=== PATIENT | female | born 1970 | race Native Hawaiian/Other Pacific Islander ===

== ENCOUNTER 2016-12-06 06:37 | Inpatient (IN) | payer MEDICAID ==
[~2016-12-06] VITALS: Ht 172.7 cm; Wt 147.2 kg
[2016-12-06] VITALS (11 sets, daily range): BP systolic 142–162; BP diastolic 73–96
[~2016-12-06 06:37] MED LIST: TRAM50TA2 PO
[2016-12-06 07:42] LABS: Basophils # (auto) 0 uL; Basophils % (auto) 0.5 % (0.0-2.0); DEFINITIVE VIEW TRANSMISSION; Eosinophils # (auto) 0.2 uL; Eosinophils % (auto) 1.6 % (0.0-7.0); Hematocrit 24.8 % (36.0-46.0); Hemoglobin 7.8 g/dL (12.2-16.2); Lymphocytes # (auto) 1.2 uL; Lymphocytes % (auto) 11.9 % (10.0-50.0); Mean Corpuscular Hemoglobin 20.8 pg (28.0-32.0); Mean Corpuscular Hgb Conc. 31.5 g/dL (32.0-36.0); Mean Corpuscular Volume 66.1 fL (80.0-100.0); Mean Platelet Volume 8.4 fL (7.4-10.4); Monocytes # (auto) 0.4 uL; Monocytes % (auto) 3.7 % (0.0-12.0); Neutrophils # (auto) 8.2 uL; Neutrophils % (auto) 82.3 % (37.0-80.0); Platelet Count (auto) 284 10^3/uL (140-450); Red Cell Distribution Width 19.2 % (11.6-16.0)
[2016-12-06 08:05] LABS: Albumin 2.7 g/dL (3.4-5.0); BUN/Creatinine Ratio 15.6; Bilirubin, Total 0.5 mg/dL (0.2-1.0); Calcium 7.9 mg/dL (8.5-10.1); Total Protein 6.9 g/dL (6.4-8.2)
[2016-12-06 08:09] LABS: Potassium 2.8 mmol/L (3.5-5.1)
[2016-12-06] MEDS ORDERED: POTASSIUM CHL 10% (20 MEQ/15ML) ORAL SOLN PO ONE (08:15)
[2016-12-06 08:35] LABS: INR 1.04 (0.9-1.15); Partial Thromboplastin Time 24.9 sec (22.64-33.71); Prothrombin Time 11.2 sec (9.37-12.3)
[2016-12-06] MEDS ORDERED: SODIUM CHLORIDE 0.9% 1,000 ML IV ONE (09:15)
[2016-12-06 12:06] LABS: Anisocytosis Moderate; Hypochromia Moderate; Microcytosis Marked; Ovalocytes FEW; Platelet Estimate Adequate; Stomatocytes Few
[2016-12-06 14:45] LABS: Urine Bilirubin Negative (Negative); Urine Color Yellow (Yellow); Urine Glucose Normal (Normal); Urine Ketone Negative (Negative); Urine Mucus FEW (None Seen); Urine Nitrite Negative (Negative); Urine RBC 82 /hpf (0 - 4); Urine Squamous Epithelial Cell FEW /hpf (<5); Urine Urobilinogen Normal (Negative); Urine WBC Clumps PRESENT /hpf (None Seen); Urine pH 5.5 (5.0-8.0)
[2016-12-06 14:47] LABS: Urine Blood 3+ /uL (Negative)
[2016-12-06] MEDS ORDERED: AZITHROMYCIN 500MG/D5W 250ML 250 ML IV ONE (16:15)
[2016-12-06] MEDS ORDERED: cefTRIAXone 1GM/50ML D5W 50 ML IV ONE (16:15)
[2016-12-06] MEDS: SODIUM CHLORIDE 0.9% 1,000 ML IV SCH ×3 (17:30→19:42)
[2016-12-06] MEDS ORDERED: ONDANSETRON HCL 4 MG/2 ML VIAL IV ONE (18:00)
[2016-12-06] MEDS ORDERED: HYDROmorphone HCL 2 MG/ML VL IV ONE (18:00)
[2016-12-07] VITALS (7 sets, daily range): BP systolic 123–158; BP diastolic 58–81
[2016-12-07] MEDS: HYDROmorphone HCL 2 MG/ML VL IV PRN ×4 (00:03→19:46)
[2016-12-07] MEDS ORDERED: HYDR25TA4 PO (00:32)
[2016-12-07 06:41] LABS: Basophils # (auto) 0 uL; Basophils % (auto) 0.3 % (0.0-2.0); DEFINITIVE VIEW TRANSMISSION; Eosinophils # (auto) 0.2 uL; Eosinophils % (auto) 1.9 % (0.0-7.0); Hematocrit 25.8 % (36.0-46.0); Hemoglobin 8.1 g/dL (12.2-16.2); Lymphocytes # (auto) 1.6 uL; Lymphocytes % (auto) 15.2 % (10.0-50.0); Mean Corpuscular Hemoglobin 21.9 pg (28.0-32.0); Mean Corpuscular Hgb Conc. 31.3 g/dL (32.0-36.0); Mean Corpuscular Volume 70.1 fL (80.0-100.0); Mean Platelet Volume 8.9 fL (7.4-10.4); Monocytes # (auto) 0.5 uL; Monocytes % (auto) 5.2 % (0.0-12.0); Neutrophils # (auto) 7.9 uL; Neutrophils % (auto) 77.4 % (37.0-80.0); Platelet Count (auto) 230 10^3/uL (140-450); White Blood Cell 10.3 10^3/uL (4.4-10.8)
[2016-12-07 07:03] LABS: Red Cell Distribution Width 22.6 % (11.6-16.0)
[2016-12-07 13:07] LABS: Platelet Estimate Adequate
[2016-12-07 13:08] LABS: Anisocytosis Moderate; Hypochromia Moderate; Ovalocytes MODERATE
[2016-12-07 13:09] LABS: Stomatocytes Few
[2016-12-07] MEDS ORDERED: BUPIVACAINE 0.25% INJ 50ML VIAL ONE (18:39)
[2016-12-07] MEDS ORDERED: IOHEXOL 300 MG/ML 100ML BOTTLE IJ ONE (18:39)
[2016-12-07] MEDS ORDERED: LIDOCAINE W/ EPINEPHRINE 1 % INJ 30ML ONE (18:39)
[2016-12-07] MEDS ORDERED: POTASSIUM CHL 20 Meq TABLET PO ONE (20:00)
[2016-12-07] MEDS: SOD CHL 0.9%/ KCL 40MEQ 1,000 ML IV SCH (21:20)
[2016-12-07] MEDS: POTASSIUM CHL 20MEQ/100ML 100 ML IV SCH ×2 (21:20→23:07)
[2016-12-08] MEDS: HYDROmorphone HCL 2 MG/ML VL IV PRN ×4 (01:58→20:16)
[2016-12-08 05:00] VITALS: BP 120/63
[2016-12-08] MEDS: SOD CHL 0.9%/ KCL 40MEQ 1,000 ML IV SCH ×3 (05:06→21:00)
[2016-12-08 06:22] LABS: Basophils # (auto) 0 uL; Basophils % (auto) 0.2 % (0.0-2.0); DEFINITIVE VIEW TRANSMISSION; Eosinophils # (auto) 0.2 uL; Eosinophils % (auto) 2.1 % (0.0-7.0); Hematocrit 24.3 % (36.0-46.0); Hemoglobin 7.6 g/dL (12.2-16.2); Lymphocytes # (auto) 1.5 uL; Lymphocytes % (auto) 16.9 % (10.0-50.0); Mean Corpuscular Hemoglobin 22.1 pg (28.0-32.0); Mean Corpuscular Hgb Conc. 31.4 g/dL (32.0-36.0); Mean Corpuscular Volume 70.2 fL (80.0-100.0); Mean Platelet Volume 8.3 fL (7.4-10.4); Monocytes # (auto) 0.5 uL; Monocytes % (auto) 5.9 % (0.0-12.0); Neutrophils # (auto) 6.5 uL; Neutrophils % (auto) 74.9 % (37.0-80.0); Platelet Count (auto) 227 10^3/uL (140-450); White Blood Cell 8.7 10^3/uL (4.4-10.8)
[2016-12-08 06:35] LABS: Red Cell Distribution Width 22.7 % (11.6-16.0)
[2016-12-08 08:00] VITALS: BP 162/77
[2016-12-08 08:13] LABS: Platelet Estimate Adequate
[2016-12-08 08:14] LABS: Anisocytosis Moderate; Hypochromia Moderate; Ovalocytes FEW
[2016-12-08 09:00] VITALS: BP 162/77
[2016-12-08 11:16] LABS: BUN/Creatinine Ratio 9.3; Calcium 7.7 mg/dL (8.5-10.1); Potassium 3.7 mmol/L (3.5-5.1)
[2016-12-08] MEDS ORDERED: hydrALAZINE HCL 20 MG/ML VL IV PRN (12:00)
[2016-12-08] MEDS: METOPROLOL TARTRATE 25 MG TAB PO SCH ×3 (12:02→22:42)
[2016-12-08 13:07] VITALS: BP 171/86
[2016-12-08 15:12] LABS: Temperature: 24.5 C (20.0-25.0)
[2016-12-08 16:56] VITALS: BP 129/68
[2016-12-08 22:00] VITALS: BP 130/61
[2016-12-09] VITALS (15 sets, daily range): BP systolic 128–162; BP diastolic 52–77
[2016-12-09] MEDS: HYDROmorphone HCL 2 MG/ML VL IV PRN ×4 (02:23→21:34)
[2016-12-09] MEDS: SOD CHL 0.9%/ KCL 40MEQ 1,000 ML IV SCH (05:20)
[2016-12-09] MEDS: METOPROLOL TARTRATE 25 MG TAB PO SCH ×2 (09:42→21:39)
[2016-12-09] MEDS: DOCUSATE SOD 100 MG CAP PO SCH ×2 (14:56→21:39)
[2016-12-09] MEDS: FERROUS SULFATE 325 MG TAB PO SCH ×2 (14:57→17:54)
[2016-12-09 17:46] LABS: Hematocrit 26.4 % (36.0-46.0); Hemoglobin 8.4 g/dL (12.2-16.2)
[2016-12-10] VITALS (7 sets, daily range): BP systolic 127–159; BP diastolic 54–96
[2016-12-10] MEDS: HYDROmorphone HCL 2 MG/ML VL IV PRN ×5 (04:01→20:15)
[2016-12-10 06:31] LABS: Hematocrit 28.7 % (36.0-46.0); Hemoglobin 9.4 g/dL (12.2-16.2)
[2016-12-10] MEDS: DOCUSATE SOD 100 MG CAP PO SCH ×2 (10:00→21:28)
[2016-12-10] MEDS ORDERED: SODIUM CHLORIDE LOCK 20 ML ONE (10:21)
[2016-12-10] MEDS ORDERED: ROCURONIUM 10MG/ML 10ML VIAL IV ONE (10:21)
[2016-12-10] MEDS ORDERED: fentaNYL CITRATE 100 MCG/2 ML VL ONE ×2 (10:21→11:05)
[2016-12-10] MEDS ORDERED: MIDAZOLAM HCL 1MG/1ML-2 ML VIAL ONE (10:21)
[2016-12-10] MEDS ORDERED: PROPOFOL 10 MG/ML 20 ML IV ONE (10:21)
[2016-12-10] MEDS ORDERED: FERRIC SUBSULFATE TOPICAL SOLN 30 ML BTL ONE (10:23)
[2016-12-10] MEDS ORDERED: ceFAZolin 1GM/50ML D5W 50 ML IV ONE (10:26)
[2016-12-10] MEDS ORDERED: HYDROmorphone HCL 2 MG/ML VL IV PRN (11:45)
[2016-12-10] MEDS ORDERED: METOCLOPRAMIDE HCL 5MG/ml INJ 2ml VIAL IV ONE (11:45)
[2016-12-10] MEDS: FERROUS SULFATE 325 MG TAB PO SCH ×3 (12:00→18:00)
[2016-12-10] MEDS: METOPROLOL TARTRATE 25 MG TAB PO SCH ×2 (12:53→21:28)
[2016-12-11] MEDS: HYDROmorphone HCL 2 MG/ML VL IV PRN ×3 (02:04→14:01)
[2016-12-11 05:00] VITALS: BP 142/74
[2016-12-11 07:20] VITALS: BP 126/64
[2016-12-11] MEDS: DOCUSATE SOD 100 MG CAP PO SCH (09:54)
[2016-12-11] MEDS: FERROUS SULFATE 325 MG TAB PO SCH ×3 (09:55→17:24)
[2016-12-11] MEDS: METOPROLOL TARTRATE 25 MG TAB PO SCH (09:55)
[2016-12-11 11:55] VITALS: BP 133/68
[2016-12-11] MEDS ORDERED: DOCU100C8 PO (13:32)
[2016-12-11] MEDS ORDERED: MET25T PO (13:32)
[2016-12-11] MEDS ORDERED: FER325T PO (13:32)
[2016-12-11 16:28] VITALS: BP 119/67
[2016-12-11 18:14] VITALS: BP 119/67
== END 2016-12-11 19:05 | disposition home or self-care (01) | DRG 468 ==
LOC: ER 06:37 → EDBD 06:37 → WEST WING 06:38
PROVIDERS: ADMIT Obstetrics & Gynecology; ATTEND Obstetrics & Gynecology
PROC: 30233N1 Transfusion of Nonautologous Red Blood Cells into Peripheral Vein, Percutaneous Approach (ICD-10-PCS; 2016-12-06)
PROC: 0UBGXZX Excision of Vagina, External Approach, Diagnostic (ICD-10-PCS; 2016-12-10)
PROC: 0TBB8ZX Excision of Bladder, Via Natural or Artificial Opening Endoscopic, Diagnostic (ICD-10-PCS; principal; 2016-12-10 10:09)
DX: D49.4 Neoplasm of unspecified behavior of bladder (principal); E44.0 Moderate protein-calorie malnutrition; N73.0 Acute parametritis and pelvic cellulitis; D49.59 Neoplasm of unspecified behavior of other genitourinary organ; I10 Essential (primary) hypertension; E66.01 Morbid (severe) obesity due to excess calories; E87.6 Hypokalemia; D50.0 Iron deficiency anemia secondary to blood loss (chronic); M81.0 Age-related osteoporosis without current pathological fracture; I34.0 Nonrheumatic mitral (valve) insufficiency; K21.9 Gastro-esophageal reflux disease without esophagitis; M15.9 Polyosteoarthritis, unspecified; Z82.49 Family history of ischemic heart disease and other diseases of the circulatory system; Z68.42 Body mass index [BMI] 45.0-49.9, adult; Z83.3 Family history of diabetes mellitus; Z90.710 Acquired absence of both cervix and uterus; Z90.721 Acquired absence of ovaries, unilateral; Z90.79 Acquired absence of other genital organ(s); Z79.899 Other long term (current) drug therapy
CPT/HCPCS: 36415; 36430; 71010; 76775; 76856; 80048; 80053; 81001; 82270; 82607; 82746; 83540; 83550; 83735; 84132; 84702; 85014; 85018; 85025; 85610; 85730; 86850; 86900; 86901; 86920; 87070; 93005; 96361; 96365; 96375; J0690; J0696; J2250; J2704; J3480; J3490

== ENCOUNTER 2016-12-19 12:46 | Inpatient (IN) | payer MEDICAID ==
[~2016-12-19] VITALS: Ht 172.7 cm; Wt 161.7 kg
[~2016-12-19 12:46] MED LIST changes: +DOCU100C8 PO; +FER325T PO; +MET25T PO
[2016-12-19] MEDS ORDERED: SODIUM CHLORIDE 0.9% 1,000 ML IV ONE (13:30)
[2016-12-19] MEDS ORDERED: ONDANSETRON HCL 4 MG/2 ML VIAL IV ONE (13:30)
[2016-12-19] MEDS ORDERED: MORPHINE SULFATE 4 MG/ML SYRG IV ONE (13:30)
[2016-12-19] MEDS ORDERED: cefTRIAXone 1GM/50ML D5W 50 ML IV ONE (13:30)
[2016-12-19 13:37] LABS: Basophils # (auto) 0 uL; Basophils % (auto) 0.5 % (0.0-2.0); DEFINITIVE VIEW TRANSMISSION; Eosinophils # (auto) 0.2 uL; Eosinophils % (auto) 2.2 % (0.0-7.0); Hematocrit 31.1 % (36.0-46.0); Hemoglobin 9.8 g/dL (12.2-16.2); Lymphocytes # (auto) 1.4 uL; Lymphocytes % (auto) 15.7 % (10.0-50.0); Mean Corpuscular Hemoglobin 22.8 pg (28.0-32.0); Mean Corpuscular Hgb Conc. 31.3 g/dL (32.0-36.0); Mean Corpuscular Volume 72.7 fL (80.0-100.0); Mean Platelet Volume 8.9 fL (7.4-10.4); Monocytes # (auto) 0.4 uL; Monocytes % (auto) 4.1 % (0.0-12.0); Neutrophils # (auto) 7.1 uL; Neutrophils % (auto) 77.5 % (37.0-80.0); Platelet Count (auto) 302 10^3/uL (140-450); SUSPECT VIEW TRANSMISSION; White Blood Cell 9.2 10^3/uL (4.4-10.8)
[2016-12-19 13:43] LABS: Albumin 2.9 g/dL (3.4-5.0); BUN/Creatinine Ratio 17.2; Calcium 8.2 mg/dL (8.5-10.1); Potassium 3.2 mmol/L (3.5-5.1)
[2016-12-19 13:45] LABS: Bilirubin, Total 0.6 mg/dL (0.2-1.0); Total Protein 7.2 g/dL (6.4-8.2)
[2016-12-19] MEDS ORDERED: HYDR-531 PO (13:52)
[2016-12-19 14:22] LABS: Red Cell Distribution Width 25.4 % (11.6-16.0)
[2016-12-19 14:23] LABS: Anisocytosis Moderate; Hypochromia Moderate; Microcytosis Moderate; Platelet Estimate Adequate
[2016-12-19] MEDS ORDERED: POTASSIUM CHL 10% (20 MEQ/15ML) ORAL SOLN PO ONE (14:30)
[2016-12-19 15:26] LABS: Urine Bilirubin Negative (Negative); Urine Color Yellow (Yellow); Urine Glucose Normal (Normal); Urine Ketone Negative (Negative); Urine Nitrite Negative (Negative); Urine RBC 17 /hpf (0 - 4); Urine Squamous Epithelial Cell FEW /hpf (<5); Urine Urobilinogen Normal (Negative)
[2016-12-19 15:35] LABS: Urine Blood 2+ /uL (Negative)
[2016-12-19] MEDS ORDERED: ONDANSETRON HCL 4 MG/2 ML VIAL IV PRN (15:45)
[2016-12-19] MEDS ORDERED: POTASSIUM CHL 20 Meq TABLET PO ONE (15:45)
[2016-12-19] MEDS ORDERED: PANTOPRAZOLE SODIUM 40 MG/10 ML VIAL IV ONE (15:45)
[2016-12-19] MEDS: SODIUM CHLORIDE 0.9% 1,000 ML IV SCH (16:24)
[2016-12-19 17:00] VITALS: BP 141/73
[2016-12-19] MEDS: TAMSULOSIN HYDROCHLORIDE 0.4 MG CAP PO SCH (18:06)
[2016-12-19] MEDS: MORPHINE SULF INJ 2 MG/ML SYRINGE 1ML IV PRN ×2 (18:06→22:04)
[2016-12-19 18:19] VITALS: BP 141/73
[2016-12-19] MEDS: METOPROLOL TARTRATE 25 MG TAB PO SCH (22:04)
[2016-12-19 22:22] VITALS: BP 142/81
[2016-12-20] MEDS: SODIUM CHLORIDE 0.9% 1,000 ML IV SCH ×3 (02:09→22:19)
[2016-12-20] MEDS: MORPHINE SULF INJ 2 MG/ML SYRINGE 1ML IV PRN ×5 (02:10→22:19)
[2016-12-20 05:20] VITALS: BP 134/70
[2016-12-20 06:37] LABS: Basophils # (auto) 0 uL; Basophils % (auto) 0.1 % (0.0-2.0); DEFINITIVE VIEW TRANSMISSION; Eosinophils # (auto) 0.2 uL; Eosinophils % (auto) 3.3 % (0.0-7.0); Hematocrit 29.3 % (36.0-46.0); Hemoglobin 9.2 g/dL (12.2-16.2); Lymphocytes # (auto) 1.5 uL; Lymphocytes % (auto) 19.7 % (10.0-50.0); Mean Corpuscular Hemoglobin 23.1 pg (28.0-32.0); Mean Corpuscular Hgb Conc. 31.4 g/dL (32.0-36.0); Mean Corpuscular Volume 73.4 fL (80.0-100.0); Mean Platelet Volume 8.6 fL (7.4-10.4); Monocytes # (auto) 0.4 uL; Monocytes % (auto) 5.2 % (0.0-12.0); Neutrophils # (auto) 5.3 uL; Neutrophils % (auto) 71.7 % (37.0-80.0); Platelet Count (auto) 278 10^3/uL (140-450); SUSPECT VIEW TRANSMISSION; White Blood Cell 7.4 10^3/uL (4.4-10.8)
[2016-12-20 06:58] LABS: Red Cell Distribution Width 25.4 % (11.6-16.0)
[2016-12-20 07:07] LABS: Calcium 7.6 mg/dL (8.5-10.1); Potassium 3.8 mmol/L (3.5-5.1)
[2016-12-20 08:00] VITALS: BP 134/70
[2016-12-20 08:33] LABS: Anisocytosis Moderate; Hypochromia Moderate; Microcytosis Moderate
[2016-12-20 08:34] LABS: Ovalocytes FEW; Platelet Estimate Adequate
[2016-12-20 08:35] LABS: Stomatocytes Few
[2016-12-20 09:18] VITALS: BP 138/70
[2016-12-20] MEDS: cefTRIAXone 1GM/50ML D5W 50 ML IV SCH (09:23)
[2016-12-20] MEDS: PANTOPRAZOLE SODIUM 40 MG/10 ML VIAL IV SCH (09:24)
[2016-12-20] MEDS: METOPROLOL TARTRATE 25 MG TAB PO SCH ×2 (09:24→22:19)
[2016-12-20 12:37] VITALS: BP 131/77
[2016-12-20 17:40] VITALS: BP 135/65
[2016-12-20] MEDS: TAMSULOSIN HYDROCHLORIDE 0.4 MG CAP PO SCH (18:07)
[2016-12-20] MEDS: HYDROcodone-ACET 5/325MG TAB PO PRN (19:41)
[2016-12-20 21:08] VITALS: BP 121/57
[2016-12-21] MEDS: MORPHINE SULF INJ 2 MG/ML SYRINGE 1ML IV PRN ×2 (02:18→05:51)
[2016-12-21] MEDS: HYDROcodone-ACET 5/325MG TAB PO PRN ×2 (03:26→09:52)
[2016-12-21 05:15] VITALS: BP 120/41
[2016-12-21 05:30] LABS: Basophils # (auto) 0 uL; Basophils % (auto) 0.4 % (0.0-2.0); DEFINITIVE VIEW TRANSMISSION; Eosinophils # (auto) 0.2 uL; Eosinophils % (auto) 2.9 % (0.0-7.0); Hemoglobin 9.1 g/dL (12.2-16.2); Lymphocytes # (auto) 1.6 uL; Lymphocytes % (auto) 21.2 % (10.0-50.0); Mean Corpuscular Hgb Conc. 31.4 g/dL (32.0-36.0); Mean Corpuscular Volume 73.4 fL (80.0-100.0); Mean Platelet Volume 8.9 fL (7.4-10.4); Monocytes # (auto) 0.4 uL; Monocytes % (auto) 4.9 % (0.0-12.0); Neutrophils # (auto) 5.3 uL; Neutrophils % (auto) 70.6 % (37.0-80.0); Platelet Count (auto) 282 10^3/uL (140-450); SUSPECT VIEW TRANSMISSION; White Blood Cell 7.5 10^3/uL (4.4-10.8)
[2016-12-21 05:35] LABS: Red Cell Distribution Width 25.8 % (11.6-16.0)
[2016-12-21 05:36] LABS: Anisocytosis Moderate; Hypochromia Moderate; Microcytosis Moderate; Ovalocytes FEW; Platelet Estimate Adequate
[2016-12-21 05:54] LABS: BUN/Creatinine Ratio 12.2; Calcium 7.6 mg/dL (8.5-10.1); Magnesium 2.1 mg/dL (1.6-2.6); Potassium 3.6 mmol/L (3.5-5.1)
[2016-12-21] MEDS: SODIUM CHLORIDE 0.9% 1,000 ML IV SCH (07:45)
[2016-12-21 09:00] VITALS: BP 130/61
[2016-12-21] MEDS: PANTOPRAZOLE SODIUM 40 MG/10 ML VIAL IV SCH (09:51)
[2016-12-21] MEDS: cefTRIAXone 1GM/50ML D5W 50 ML IV SCH (09:52)
[2016-12-21] MEDS: METOPROLOL TARTRATE 25 MG TAB PO SCH (09:53)
[2016-12-21 11:35] VITALS: BP 130/61
[2016-12-21 12:54] VITALS: BP 130/70
== END 2016-12-21 15:00 | disposition home or self-care (01) | DRG 465 ==
LOC: EDBD 12:46 → ER 12:50 → OVERFLOW 12:51 → EAST 17:12
PROVIDERS: ADMIT Internal Medicine; ATTEND Internal Medicine
DX: N13.2 Hydronephrosis with renal and ureteral calculous obstruction (principal); N39.0 Urinary tract infection, site not specified; C67.9 Malignant neoplasm of bladder, unspecified; I10 Essential (primary) hypertension; C54.1 Malignant neoplasm of endometrium; E66.01 Morbid (severe) obesity due to excess calories; Z83.3 Family history of diabetes mellitus; Z90.49 Acquired absence of other specified parts of digestive tract; Z90.710 Acquired absence of both cervix and uterus; Z68.43 Body mass index [BMI] 50.0-59.9, adult
CPT/HCPCS: 36415; 74176; 80048; 80053; 81001; 83735; 85025; 87040; 87081; 87086; 96365; 96375; 99291; C9113; J0696; J2405

== ENCOUNTER 2017-04-22 03:19 | Inpatient (IN) | payer MEDICAID ==
[2017-04-22] VITALS (7 sets, daily range): BP systolic 102–135; BP diastolic 49–70
[~2017-04-22] VITALS: Ht 172.7 cm; Wt 113.6 kg
[~2017-04-22 03:19] MED LIST changes: -DOCU100C8 PO; +FAMO-12 PO; -FER325T PO; +MORP1CAP32 PO; +ONDA8TAB6 PO; -TRAM50TA2 PO
[2017-04-22 04:39] LABS: CONDITION Y; DEFINITIVE SEE PRINTOUT; Hematocrit 22.3 % (36.0-46.0); Hemoglobin 7.7 g/dL (12.2-16.2); Mean Corpuscular Hemoglobin 29.5 pg (28.0-32.0); Mean Corpuscular Hgb Conc. 34.6 g/dL (32.0-36.0); Mean Corpuscular Volume 85.3 fL (80.0-100.0); Mean Platelet Volume 9.4 fL (7.4-10.4); Platelet Count (auto) 72 10^3/uL (140-450); SUSPECT SEE PRINTOUT; White Blood Cell 2.2 10^3/uL (4.4-10.8)
[2017-04-22] MEDS ORDERED: SODIUM CHLORIDE 0.9% 1,000 ML IVB ONE (04:50)
[2017-04-22] MEDS ORDERED: ONDANSETRON HCL 4 MG/2 ML VIAL IV ONE (05:00)
[2017-04-22] MEDS ORDERED: HYDROmorphone HCL 2 MG/ML VL IV ONE (05:00)
[2017-04-22 05:13] LABS: Red Cell Distribution Width 22.3 % (11.6-16.0)
[2017-04-22 05:14] LABS: Metamyelocytes % 0; Myelocytes % 0; Promyelocytes % 0; Reactive Lymphocytes 0
[2017-04-22 05:18] LABS: Alkaline Phosphatase 64 U/L (45-117); Anion Gap 9 (5-15); Aspartate Aminotransferase 15 U/L (15-37); BUN/Creatinine Ratio 16.8; Bilirubin, Total 0.6 mg/dL (0.2-1.0); Blood Urea Nitrogen 24 mg/dL (7-18); Calcium 8.5 mg/dL (8.5-10.1); Carbon Dioxide 23 mmol/L (21-32); Chloride 104 mmol/L (98-107); GFR African American 51 mL/min; GFR Non-African American 42 mL/min; Glucose 108 mg/dL (74-106); Potassium 3.4 mmol/L (3.5-5.1); Sodium 136 mmol/L (136-145); Total Protein 7.3 g/dL (6.4-8.2)
[2017-04-22 05:58] LABS: Magnesium 1.6 mg/dL (1.6-2.6)
[2017-04-22 06:11] LABS: INR 1.05 (0.9-1.15); Prothrombin Time 11.4 sec (9.37-12.3)
[2017-04-22 06:48] LABS: Anisocytosis Slight; Ovalocytes FEW; Platelet Estimate Decreased
[2017-04-22 08:44] LABS: Urine Bilirubin Negative (Negative); Urine Blood Negative /uL (Negative); Urine Color Yellow (Yellow); Urine Glucose Normal (Normal); Urine Ketone Negative (Negative); Urine Mucus FEW (None Seen); Urine Nitrite Negative (Negative); Urine RBC 1 /hpf (0 - 4); Urine Urobilinogen Normal (Negative); Urine pH 5.5 (5.0-8.0)
[2017-04-22] MEDS ORDERED: cefTRIAXone 1GM/50ML D5W 50 ML IV ONE (09:15)
[2017-04-22] MEDS ORDERED: VANCOMYCIN PER PHARMACY 0 MG IV SCH (12:00)
[2017-04-22] MEDS ORDERED: NITROGLYCERIN 0.4 MG SL TAB SL PRN (12:15)
[2017-04-22] MEDS ORDERED: ACETAMINOPHEN 325 MG TAB PO PRN (12:15)
[2017-04-22] MEDS ORDERED: DOCUSATE SOD 100 MG CAP PO PRN (12:15)
[2017-04-22] MEDS ORDERED: TEMAZEPAM 15 MG CAP PO PRN (12:15)
[2017-04-22] MEDS ORDERED: MORPHINE SULF INJ 2 MG/ML SYRINGE 1ML IV PRN (12:15)
[2017-04-22] MEDS ORDERED: POTASSIUM CHL 10 Meq TABLET PO ONE (12:15)
[2017-04-22] MEDS ORDERED: ONDANSETRON HCL 4 MG/2 ML VIAL IV PRN (12:15)
[2017-04-22] MEDS ORDERED: METOPROLOL TARTRATE 25 MG TAB PO ONE (12:30)
[2017-04-22] MEDS ORDERED: MORPHINE SULF 30 mg ER tab PO ONE (12:30)
[2017-04-22] MEDS ORDERED: MULTIPLE VITAMIN TAB PO ONE (12:30)
[2017-04-22] MEDS ORDERED: FAMOTIDINE 20 MG TAB PO ONE (12:30)
[2017-04-22] MEDS: SODIUM CHLORIDE 0.9% 1,000 ML IV SCH ×2 (12:34→15:20)
[2017-04-22] MEDS ORDERED: VANCOMYCIN 1GM/250ML D5W 250 ML IV ONE (14:00)
[2017-04-22] MEDS: MORPHINE SULF INJ 2 MG/ML SYRINGE 1ML IV PRN (15:21)
[2017-04-22] MEDS: BOOST PLUS 8 ounce PO SCH (18:00)
[2017-04-22] MEDS: METOPROLOL TARTRATE 25 MG TAB PO SCH (22:00)
[2017-04-22] MEDS: MORPHINE SULF 30 mg ER tab PO SCH (22:30)
[2017-04-22] MEDS: FAMOTIDINE 20 MG TAB PO SCH (22:32)
[2017-04-23] VITALS (9 sets, daily range): BP systolic 89–131; BP diastolic 44–78
[2017-04-23] MEDS: MORPHINE SULF INJ 2 MG/ML SYRINGE 1ML IV PRN ×3 (01:10→14:23)
[2017-04-23 06:14] LABS: White Blood Cell 2.6 10^3/uL (4.4-10.8)
[2017-04-23 06:15] LABS: CONDITION Y; DEFINITIVE SEE PRINTOUT; Hematocrit 23.3 % (36.0-46.0); Hemoglobin 8.1 g/dL (12.2-16.2); Mean Corpuscular Hemoglobin 29.7 pg (28.0-32.0); Mean Corpuscular Hgb Conc. 34.9 g/dL (32.0-36.0); Mean Corpuscular Volume 85.3 fL (80.0-100.0); Mean Platelet Volume 8.8 fL (7.4-10.4); Platelet Count (auto) 53 10^3/uL (140-450); Red Cell Distribution Width 19.7 % (11.6-16.0); SUSPECT SEE PRINTOUT
[2017-04-23 06:19] LABS: Metamyelocytes % 0; Myelocytes % 0; Promyelocytes % 0; Reactive Lymphocytes 0
[2017-04-23 06:43] LABS: Albumin 2.6 g/dL (3.4-5.0); BUN/Creatinine Ratio 13.5; Bilirubin, Total 0.9 mg/dL (0.2-1.0); Calcium 8.2 mg/dL (8.5-10.1); Potassium 3.6 mmol/L (3.5-5.1); Total Protein 6.6 g/dL (6.4-8.2)
[2017-04-23 08:25] LABS: Anisocytosis Moderate; Platelet Estimate Decreased
[2017-04-23] MEDS ORDERED: cefTRIAXone 1GM/50ML D5W 50 ML IV SCH (09:00)
[2017-04-23] MEDS ORDERED: MULTIPLE VITAMIN TAB PO SCH (10:00)
[2017-04-23] MEDS: BOOST PLUS 8 ounce PO SCH ×3 (10:05→17:15)
[2017-04-23] MEDS: METOPROLOL TARTRATE 25 MG TAB PO SCH (10:06)
[2017-04-23] MEDS: MORPHINE SULF 30 mg ER tab PO SCH (10:06)
[2017-04-23] MEDS: FAMOTIDINE 20 MG TAB PO SCH (10:06)
== END 2017-04-23 17:44 | disposition home or self-care (01) | DRG 465 ==
LOC: EDBD 03:19 → ER 03:19 → TELE 03:20 → TELE-E-ADS 13:13 → TELE-WESTW 15:50
PROVIDERS: ADMIT Internal Medicine; ATTEND Internal Medicine
PROC: 30233N1 Transfusion of Nonautologous Red Blood Cells into Peripheral Vein, Percutaneous Approach (ICD-10-PCS; principal; 2017-04-22)
DX: N20.1 Calculus of ureter (principal); D61.818 Other pancytopenia; I11.0 Hypertensive heart disease with heart failure; C79.11 Secondary malignant neoplasm of bladder; E44.0 Moderate protein-calorie malnutrition; I50.9 Heart failure, unspecified; C54.1 Malignant neoplasm of endometrium; D64.89 Other specified anemias; F41.9 Anxiety disorder, unspecified; N39.0 Urinary tract infection, site not specified; E87.6 Hypokalemia; Z90.49 Acquired absence of other specified parts of digestive tract; Z90.710 Acquired absence of both cervix and uterus; Z68.38 Body mass index [BMI] 38.0-38.9, adult; Z83.3 Family history of diabetes mellitus
CPT/HCPCS: 36415; 71010; 74176; 80053; 80202; 81001; 82150; 82962; 83605; 83690; 83735; 84484; 85007; 85027; 85610; 85730; 86850; 86900; 86901; 86920; 87040; 87081; 87086; 93005; 94761; 96361; 96365; 96375; J0696; J2405

== ENCOUNTER 2017-07-28 15:01 | Inpatient (IN) | payer MEDICAID ==
[~2017-07-28] VITALS: Ht 172.7 cm; Wt 123.0 kg
[2017-07-28 15:41] LABS: Eosinophils # (auto) 0 uL; Hemoglobin 7.8 g/dL (12.2-16.2); Lymphocytes # (auto) 0.3 uL; Mean Corpuscular Hgb Conc. 34.5 g/dL (32.0-36.0); Monocytes # (auto) 0 uL
[2017-07-28 15:42] LABS: Basophils # (auto) 0.1 uL; Basophils % (auto) 1.5 % (0.0-2.0); Eosinophils % (auto) 0.3 % (0.0-7.0); Hematocrit 22.5 % (36.0-46.0); Lymphocytes % (auto) 7.7 % (10.0-50.0); Mean Corpuscular Hemoglobin 34.7 pg (28.0-32.0); Mean Corpuscular Volume 100.8 fL (80.0-100.0); Mean Platelet Volume 8.5 fL (6.9-10.8); Monocytes % (auto) 0.6 % (0.0-12.0); Neutrophils # (auto) 3.5 uL; Neutrophils % (auto) 89.9 % (37.0-80.0); Platelet Count (auto) 73 10^3/uL (140-450); White Blood Cell 3.9 10^3/uL (4.4-10.8)
[2017-07-28 15:49] LABS: Red Cell Distribution Width 24.5 % (11.8-14.3)
[2017-07-28 15:51] LABS: Anisocytosis Moderate; Macrocytosis Slight; Platelet Estimate Decreased
[2017-07-28 15:58] LABS: Albumin 3.1 g/dL (3.4-5.0); Amylase 20 U/L (25-115); Anion Gap 9 (5-15); Aspartate Aminotransferase 13 U/L (15-37); BUN/Creatinine Ratio 18.5; Blood Urea Nitrogen 23 mg/dL (7-18); Calcium 8.5 mg/dL (8.5-10.1); Carbon Dioxide 24 mmol/L (21-32); Chloride 104 mmol/L (98-107); GFR African American 60 mL/min; GFR Non-African American 50 mL/min; Glucose 115 mg/dL (74-106); Magnesium 1.5 mg/dL (1.6-2.6); Potassium 3.7 mmol/L (3.5-5.1); Sodium 137 mmol/L (136-145)
[2017-07-28 16:02] LABS: Alkaline Phosphatase 56 U/L (45-117); Bilirubin, Total 0.9 mg/dL (0.2-1.0)
[2017-07-28 16:05] LABS: INR 1.07 (0.9-1.15); Partial Thromboplastin Time 27.2 sec (22.64-33.71); Prothrombin Time 11.7 sec (9.37-12.3)
[2017-07-28] MEDS ORDERED: SODIUM CHLORIDE 0.9% 1,000 ML IVB ONE (16:23)
[2017-07-28] MEDS ORDERED: ONDANSETRON HCL 4 MG/2 ML VIAL IV ONE ×2 (16:30→17:30)
[2017-07-28] MEDS: MORPHINE SULF INJ 2 MG/ML SYRINGE 1ML IV PRN ×3 (17:17→22:45)
[2017-07-28] MEDS ORDERED: MORPHINE SULF INJ 2 MG/ML SYRINGE 1ML IV ONE (17:30)
[2017-07-28] MEDS ORDERED: ACETAMINOPHEN 325 MG TAB PO ONE (17:30)
[2017-07-28 18:20] LABS: Urine Bilirubin Negative (Negative); Urine Blood 2+ /uL (Negative); Urine Color Yellow (Yellow); Urine Glucose Normal (Normal); Urine Ketone Negative (Negative); Urine Mucus FEW (None Seen); Urine Nitrite POSITIVE (Negative); Urine RBC 22 /hpf (0 - 4); Urine Urobilinogen Normal (Negative); Urine WBC Clumps PRESENT /hpf (None Seen); Urine pH 5.5 (5.0-8.0)
[2017-07-28] MEDS ORDERED: cefTRIAXone 1GM/50ML D5W 50 ML IV ONE (18:30)
[2017-07-28] MEDS ORDERED: SODIUM CHLORIDE 0.9% 1,000 ML IV ONE (19:00)
[2017-07-28] MEDS: MAGNESIUM SULFATE 1GM/100ML 100 ML IV SCH ×2 (19:40→21:01)
[2017-07-28] MEDS ORDERED: PANTOPRAZOLE 40 MG/10 ML VIAL IV ONE (21:15)
[2017-07-28] MEDS ORDERED: MORPHINE SULF INJ 2 MG/ML SYRINGE 1ML IV PRN (21:15)
[2017-07-28] MEDS ORDERED: NITROGLYCERIN 0.4 MG SL TAB SL PRN (21:15)
[2017-07-28] MEDS ORDERED: TEMAZEPAM 15 MG CAP PO PRN (21:15)
[2017-07-28] MEDS ORDERED: ALBUMIN 5% 250 ML IV ONE (21:15)
[2017-07-28] MEDS ORDERED: FILGRASTIM 300 MCG INJ VIAL SC ONE (21:15)
[2017-07-28] MEDS ORDERED: DOCUSATE SOD 100 MG CAP PO PRN (21:15)
[2017-07-28] MEDS ORDERED: PROMETHAZINE HCL 25 MG/ML 1ML IV PRN (21:15)
[2017-07-28] MEDS: SODIUM CHLORIDE 0.9% 1,000 ML IV SCH (21:49)
[2017-07-28] MEDS: METOPROLOL TARTRATE 25 MG TAB PO SCH ×2 (22:00→22:46)
[2017-07-28] MEDS ORDERED: VANCOMYCIN PER PHARMACY 0 MG IV SCH (22:15)
[2017-07-28 22:30] VITALS: BP 131/68
[2017-07-28] MEDS: ONDANSETRON HCL 4 MG/2 ML VIAL IV PRN (22:44)
[2017-07-28] MEDS ORDERED: VANCOMYCIN 1GM/250ML 250 ML IV ONE (23:00)
[2017-07-29] VITALS (9 sets, daily range): BP systolic 100–123; BP diastolic 49–71
[2017-07-29] MEDS: ACETAMINOPHEN 325 MG TAB PO PRN ×2 (00:14→16:19)
[2017-07-29] MEDS ORDERED: BENA5TAB5 PO (02:27)
[2017-07-29] MEDS ORDERED: POTA10TA51 PO (02:27)
[2017-07-29] MEDS ORDERED: FURO40TA4 PO (02:27)
[2017-07-29] MEDS ORDERED: FERR325T PO (02:27)
[2017-07-29] MEDS: ONDANSETRON HCL 4 MG/2 ML VIAL IV PRN (06:44)
[2017-07-29] MEDS: MORPHINE SULF INJ 2 MG/ML SYRINGE 1ML IV PRN ×4 (06:45→18:51)
[2017-07-29] MEDS: FERROUS SULFATE 325 MG TAB PO SCH ×2 (09:26→18:36)
[2017-07-29] MEDS: cefTRIAXone 1GM/50ML D5W 50 ML IV SCH (09:26)
[2017-07-29] MEDS: ENOXAPARIN SOD 40 MG/0.4 ML SYRINGE SC SCH (09:27)
[2017-07-29] MEDS: PANTOPRAZOLE 40 MG/10 ML VIAL IV SCH (09:27)
[2017-07-29 09:41] LABS: Basophils # (auto) 0 uL; Eosinophils # (auto) 0 uL; Hematocrit 24.8 % (36.0-46.0); Hemoglobin 8.5 g/dL (12.2-16.2); Lymphocytes # (auto) 0.3 uL; Lymphocytes % (auto) 8.6 % (10.0-50.0); Monocytes # (auto) 0 uL; Neutrophils # (auto) 3.4 uL
[2017-07-29 09:43] LABS: Basophils % (auto) 0.8 % (0.0-2.0); Mean Corpuscular Hemoglobin 34.8 pg (28.0-32.0); Mean Corpuscular Hgb Conc. 34.3 g/dL (32.0-36.0); Mean Corpuscular Volume 101.4 fL (80.0-100.0); Mean Platelet Volume 9.9 fL (6.9-10.8); Monocytes % (auto) 0.8 % (0.0-12.0); Neutrophils % (auto) 88.8 % (37.0-80.0); Nucleated Red Blood Cells % 0.2 %; Platelet Count (auto) 57 10^3/uL (140-450); White Blood Cell 3.8 10^3/uL (4.4-10.8)
[2017-07-29 09:44] LABS: Red Cell Distribution Width 22.9 % (11.8-14.3)
[2017-07-29 09:54] LABS: Albumin 2.9 g/dL (3.4-5.0); BUN/Creatinine Ratio 16.1; Calcium 8.2 mg/dL (8.5-10.1); Potassium 3.6 mmol/L (3.5-5.1)
[2017-07-29 09:57] LABS: Bilirubin, Total 1.2 mg/dL (0.2-1.0); Total Protein 7.7 g/dL (6.4-8.2)
[2017-07-29] MEDS ORDERED: FILGRASTIM 300 MCG INJ VIAL SC SCH (10:00)
[2017-07-29] MEDS ORDERED: ENOXAPARIN SOD 30 MG/0.3 ML SYRINGE SC SCH (10:00)
[2017-07-29] MEDS: METOPROLOL TARTRATE 25 MG TAB PO SCH ×2 (10:00→23:13)
[2017-07-29] MEDS: SODIUM CHLORIDE 0.9% 1,000 ML IV SCH (10:45)
[2017-07-29] MEDS ORDERED: VANCOMYCIN 1,250 MG in SODIUM CHL 0.9% 250 ML IV SCH (11:00)
[2017-07-29 11:26] LABS: Large Platelets FEW; Ovalocytes FEW; Platelet Estimate Decreased; Tear Drop Cells FEW
[2017-07-29 11:27] LABS: Anisocytosis Slight; Macrocytosis Slight
[2017-07-29] MEDS: LEVOFLOXACIN 500MG 100 ML IV SCH (14:53)
[2017-07-29] MEDS: HYDROcodone-ACET 5/325MG TAB PO PRN ×2 (14:56→23:13)
[2017-07-30] MEDS: SODIUM CHLORIDE 0.9% 1,000 ML IV SCH ×2 (00:47→18:06)
[2017-07-30] MEDS: MORPHINE SULF INJ 2 MG/ML SYRINGE 1ML IV PRN ×4 (04:49→18:00)
[2017-07-30 05:00] VITALS: BP 129/68
[2017-07-30 08:00] LABS: Basophils # (auto) 0 uL; Eosinophils # (auto) 0 uL; Eosinophils % (auto) 0.4 % (0.0-7.0); Hemoglobin 7.4 g/dL (12.2-16.2); Lymphocytes # (auto) 0.2 uL; Mean Corpuscular Hemoglobin 34.5 pg (28.0-32.0); Monocytes # (auto) 0 uL; Neutrophils # (auto) 1.5 uL
[2017-07-30 08:02] LABS: Basophils % (auto) 0.5 % (0.0-2.0); Hematocrit 20.9 % (36.0-46.0); Lymphocytes % (auto) 12.6 % (10.0-50.0); Mean Corpuscular Hgb Conc. 35.3 g/dL (32.0-36.0); Mean Corpuscular Volume 97.7 fL (80.0-100.0); Mean Platelet Volume 8.6 fL (6.9-10.8); Monocytes % (auto) 2.1 % (0.0-12.0); Neutrophils % (auto) 84.4 % (37.0-80.0)
[2017-07-30 08:07] LABS: Red Cell Distribution Width 22.3 % (11.8-14.3)
[2017-07-30 08:16] LABS: Platelet Count (auto) 43 10^3/uL (140-450); White Blood Cell 1.7 10^3/uL (4.4-10.8)
[2017-07-30 09:00] VITALS: BP 113/53
[2017-07-30 09:18] LABS: Anisocytosis Slight; Hypochromia Moderate; Platelet Estimate Decreased
[2017-07-30] MEDS: ENOXAPARIN SOD 40 MG/0.4 ML SYRINGE SC SCH (09:38)
[2017-07-30] MEDS: PANTOPRAZOLE 40 MG/10 ML VIAL IV SCH (09:39)
[2017-07-30] MEDS: FERROUS SULFATE 325 MG TAB PO SCH ×2 (09:39→18:07)
[2017-07-30] MEDS: cefTRIAXone 1GM/50ML D5W 50 ML IV SCH (09:41)
[2017-07-30] MEDS: METOPROLOL TARTRATE 25 MG TAB PO SCH ×2 (10:00→21:57)
[2017-07-30] MEDS: HYDROcodone-ACET 5/325MG TAB PO PRN ×3 (12:00→21:02)
[2017-07-30] MEDS: ACETAMINOPHEN 325 MG TAB PO PRN (12:21)
[2017-07-30 13:00] VITALS: BP 116/65
[2017-07-30] MEDS: LEVOFLOXACIN 500MG 100 ML IV SCH (15:52)
[2017-07-30 16:56] VITALS: BP 120/66
[2017-07-30] MEDS: FILGRASTIM 480 MCG INJ VIAL SC SCH (18:05)
[2017-07-30 22:00] VITALS: BP 120/67
[2017-07-31] MEDS: MORPHINE SULF INJ 2 MG/ML SYRINGE 1ML IV PRN ×5 (00:08→18:47)
[2017-07-31] MEDS: HYDROcodone-ACET 5/325MG TAB PO PRN ×5 (02:21→21:23)
[2017-07-31 05:22] VITALS: BP 126/66
[2017-07-31 05:37] LABS: Basophils # (auto) 0 uL; Eosinophils # (auto) 0 uL; Lymphocytes # (auto) 0.4 uL; Mean Corpuscular Hemoglobin 34.9 pg (28.0-32.0); Mean Corpuscular Hgb Conc. 35.7 g/dL (32.0-36.0); Mean Platelet Volume 8.8 fL (6.9-10.8); Monocytes # (auto) 0.1 uL; Neutrophils # (auto) 0.8 uL
[2017-07-31 05:40] LABS: Basophils % (auto) 0.5 % (0.0-2.0); Eosinophils % (auto) 0.6 % (0.0-7.0); Hematocrit 19.9 % (36.0-46.0); Hemoglobin 7.1 g/dL (12.2-16.2); Lymphocytes % (auto) 30.9 % (10.0-50.0); Mean Corpuscular Volume 97.5 fL (80.0-100.0); Monocytes % (auto) 7.1 % (0.0-12.0); Neutrophils % (auto) 60.9 % (37.0-80.0); Platelet Count (auto) 35 10^3/uL (140-450)
[2017-07-31 05:45] LABS: White Blood Cell 1.3 10^3/uL (4.4-10.8)
[2017-07-31] MEDS: SODIUM CHLORIDE 0.9% 1,000 ML IV SCH ×2 (06:17→13:52)
[2017-07-31 06:52] LABS: Platelet Estimate Decreased
[2017-07-31 06:53] LABS: Ovalocytes FEW
[2017-07-31 06:54] LABS: Anisocytosis Slight; Tear Drop Cells FEW
[2017-07-31] MEDS: FERROUS SULFATE 325 MG TAB PO SCH ×2 (08:31→17:38)
[2017-07-31 09:00] VITALS: BP 100/59
[2017-07-31] MEDS: METOPROLOL TARTRATE 25 MG TAB PO SCH (10:00)
[2017-07-31] MEDS: cefTRIAXone 1GM/50ML D5W 50 ML IV SCH (10:45)
[2017-07-31] MEDS: LEVOFLOXACIN 500MG 100 ML IV SCH (10:46)
[2017-07-31] MEDS: FILGRASTIM 480 MCG INJ VIAL SC SCH (10:47)
[2017-07-31] MEDS: ENOXAPARIN SOD 40 MG/0.4 ML SYRINGE SC SCH (10:47)
[2017-07-31] MEDS: PANTOPRAZOLE 40 MG/10 ML VIAL IV SCH (10:49)
[2017-07-31 11:15] LABS: BUN/Creatinine Ratio 14.7; Calcium 7.7 mg/dL (8.5-10.1); Potassium 3.2 mmol/L (3.5-5.1)
[2017-07-31] MEDS ORDERED: POTASSIUM CHL 10% (20 MEQ/15ML) 15ml ORAL SOLN PO ONE (12:30)
[2017-07-31 13:00] VITALS: BP 110/62
[2017-07-31 16:52] VITALS: BP 112/61
[2017-07-31] MEDS ORDERED: PROMETHAZINE HCL 25 MG/ML 1ML IV PRN (20:00)
[2017-07-31 21:28] VITALS: BP 107/59
[2017-08-01] MEDS: MORPHINE SULF INJ 2 MG/ML SYRINGE 1ML IV PRN ×6 (00:13→22:29)
[2017-08-01] MEDS: SODIUM CHLORIDE 0.9% 1,000 ML IV SCH ×2 (02:05→16:12)
[2017-08-01] MEDS: HYDROcodone-ACET 5/325MG TAB PO PRN ×5 (03:41→20:30)
[2017-08-01 05:04] VITALS: BP 102/49
[2017-08-01 05:11] LABS: Hemoglobin 7.1 g/dL (12.2-16.2)
[2017-08-01 05:14] LABS: Hematocrit 20.5 % (36.0-46.0); Mean Corpuscular Hemoglobin 34.9 pg (28.0-32.0); Mean Corpuscular Hgb Conc. 34.8 g/dL (32.0-36.0); Mean Corpuscular Volume 100.2 fL (80.0-100.0); Mean Platelet Volume 9.1 fL (6.9-10.8); Platelet Count (auto) 28 10^3/uL (140-450)
[2017-08-01 05:39] LABS: BUN/Creatinine Ratio 12.9; Calcium 8.1 mg/dL (8.5-10.1); Magnesium 1.5 mg/dL (1.6-2.6); Potassium 3.9 mmol/L (3.5-5.1)
[2017-08-01 06:07] LABS: Red Cell Distribution Width 22.5 % (11.8-14.3)
[2017-08-01 06:10] LABS: Metamyelocytes % 0; Myelocytes % 0; Promyelocytes % 0; Reactive Lymphocytes 0; White Blood Cell 1.3 10^3/uL (4.4-10.8)
[2017-08-01] MEDS: FERROUS SULFATE 325 MG TAB PO SCH ×2 (07:55→17:15)
[2017-08-01 09:00] VITALS: BP 110/65
[2017-08-01] MEDS: cefTRIAXone 1GM/50ML D5W 50 ML IV SCH (09:54)
[2017-08-01 10:04] LABS: Platelet Estimate Decreased
[2017-08-01 10:06] LABS: Anisocytosis Slight; Microcytosis Slight; Ovalocytes FEW
[2017-08-01] MEDS: FILGRASTIM 480 MCG INJ VIAL SC SCH (10:23)
[2017-08-01] MEDS: PANTOPRAZOLE 40 MG/10 ML VIAL IV SCH (10:23)
[2017-08-01] MEDS: LEVOFLOXACIN 500MG 100 ML IV SCH (10:24)
[2017-08-01 13:00] VITALS: BP 11/63
[2017-08-01] MEDS: MAGNESIUM SULFATE 1GM/100ML 100 ML IV SCH ×3 (14:29→17:15)
[2017-08-01 17:00] VITALS: BP 134/70
[2017-08-01 18:33] LABS: INR 1.01 (0.9-1.15)
[2017-08-01 22:00] VITALS: BP 119/63
[2017-08-02] VITALS (8 sets, daily range): BP systolic 104–126; BP diastolic 50–71
[2017-08-02] MEDS: HYDROcodone-ACET 5/325MG TAB PO PRN ×5 (00:24→21:49)
[2017-08-02] MEDS: MORPHINE SULF INJ 2 MG/ML SYRINGE 1ML IV PRN ×5 (02:42→19:30)
[2017-08-02] MEDS: SODIUM CHLORIDE 0.9% 1,000 ML IV SCH ×2 (04:47→18:23)
[2017-08-02 05:35] LABS: Hematocrit 22.7 % (36.0-46.0); Hemoglobin 8.2 g/dL (12.2-16.2); Mean Corpuscular Hemoglobin 34.8 pg (28.0-32.0); Mean Corpuscular Hgb Conc. 35.9 g/dL (32.0-36.0); Mean Corpuscular Volume 96.9 fL (80.0-100.0); Mean Platelet Volume 9.4 fL (6.9-10.8); Platelet Count (auto) 26 10^3/uL (140-450); White Blood Cell 2.2 10^3/uL (4.4-10.8)
[2017-08-02 05:53] LABS: BUN/Creatinine Ratio 13.7; Calcium 8.5 mg/dL (8.5-10.1); Magnesium 1.7 mg/dL (1.6-2.6); Potassium 3.3 mmol/L (3.5-5.1)
[2017-08-02 06:04] LABS: Red Cell Distribution Width 21.7 % (11.8-14.3)
[2017-08-02 06:05] LABS: Metamyelocytes % 0; Myelocytes % 0; Promyelocytes % 0; Reactive Lymphocytes 0
[2017-08-02 06:49] LABS: Anisocytosis Slight; Ovalocytes FEW; Platelet Estimate Decreased
[2017-08-02] MEDS: MAGNESIUM SULFATE 1GM/100ML 100 ML IV SCH ×2 (07:20→10:27)
[2017-08-02] MEDS ORDERED: POTASSIUM CHL 20 Meq TABLET PO ONE (10:00)
[2017-08-02] MEDS: LEVOFLOXACIN 500 MG TAB PO SCH (10:00)
[2017-08-02] MEDS: PANTOPRAZOLE 40 MG TAB PO SCH (10:00)
[2017-08-02] MEDS ORDERED: LEVO500T21 PO (10:25)
[2017-08-02] MEDS ORDERED: [UNRECOGNIZED DRUG - CODE] SUBCUT (10:25)
[2017-08-02] MEDS: FERROUS SULFATE 325 MG TAB PO SCH ×2 (10:27→18:00)
[2017-08-02] MEDS: LEVOFLOXACIN 500MG 100 ML IV SCH (10:28)
[2017-08-02 18:32] LABS: Hematocrit 25.7 % (36.0-46.0); Hemoglobin 8.9 g/dL (12.2-16.2); Mean Platelet Volume 9.5 fL (6.9-10.8); Platelet Count (auto) 27 10^3/uL (140-450)
[2017-08-02 18:34] LABS: Mean Corpuscular Hemoglobin 33.4 pg (28.0-32.0); Mean Corpuscular Hgb Conc. 34.6 g/dL (32.0-36.0); Mean Corpuscular Volume 96.7 fL (80.0-100.0)
[2017-08-02 18:36] LABS: Red Cell Distribution Width 21.9 % (11.8-14.3)
[2017-08-02 18:37] LABS: Metamyelocytes % 0; Myelocytes % 0; Promyelocytes % 0; Reactive Lymphocytes 0
[2017-08-02 19:26] LABS: Anisocytosis Slight; Ovalocytes FEW; Platelet Estimate Decreased
[2017-08-03] MEDS: MORPHINE SULF INJ 2 MG/ML SYRINGE 1ML IV PRN ×3 (03:38→13:12)
[2017-08-03 04:49] VITALS: BP 123/73
[2017-08-03] MEDS: HYDROcodone-ACET 5/325MG TAB PO PRN ×2 (05:08→10:29)
[2017-08-03 05:58] LABS: Hematocrit 23.2 % (36.0-46.0); Hemoglobin 8.1 g/dL (12.2-16.2); Mean Corpuscular Hemoglobin 33.9 pg (28.0-32.0); Mean Corpuscular Hgb Conc. 35.1 g/dL (32.0-36.0); Mean Corpuscular Volume 96.7 fL (80.0-100.0); Mean Platelet Volume 8.9 fL (6.9-10.8); Platelet Count (auto) 25 10^3/uL (140-450); White Blood Cell 3.4 10^3/uL (4.4-10.8)
[2017-08-03 06:05] LABS: Red Cell Distribution Width 22.1 % (11.8-14.3)
[2017-08-03 06:06] LABS: Metamyelocytes % 0; Myelocytes % 0; Promyelocytes % 0
[2017-08-03 07:30] VITALS: BP 140/77
[2017-08-03 07:37] LABS: Reactive Lymphocytes 2
[2017-08-03 07:38] LABS: Anisocytosis Slight; Large Platelets FEW; Ovalocytes FEW; Platelet Estimate Markedly Decreased; Tear Drop Cells FEW
[2017-08-03] MEDS: SODIUM CHLORIDE 0.9% 1,000 ML IV SCH (08:54)
[2017-08-03] MEDS: FERROUS SULFATE 325 MG TAB PO SCH (08:54)
[2017-08-03 09:00] VITALS: BP 140/77
[2017-08-03] MEDS: LEVOFLOXACIN 500 MG TAB PO SCH (10:16)
[2017-08-03] MEDS: PANTOPRAZOLE 40 MG TAB PO SCH (10:17)
[2017-08-03 12:11] VITALS: BP 120/67
[2017-08-03 12:24] VITALS: BP 147/70
== END 2017-08-03 14:59 | disposition home health service (06) | DRG 720 ==
LOC: EDBD 15:01 → ER 15:07 → TELE 15:08 → TELE-WESTW 22:20
PROVIDERS: ADMIT Nurse Practitioner; ATTEND Internal Medicine
PROC: 30233N1 Transfusion of Nonautologous Red Blood Cells into Peripheral Vein, Percutaneous Approach (ICD-10-PCS; principal; 2017-07-29)
DX: A41.9 Sepsis, unspecified organism (principal); D61.810 Antineoplastic chemotherapy induced pancytopenia; I13.0 Hypertensive heart and chronic kidney disease with heart failure and stage 1 through stage 4 chronic kidney disease, or unspecified chronic kidney disease; E83.42 Hypomagnesemia; I50.9 Heart failure, unspecified; N18.3 Chronic kidney disease, stage 3 (moderate); N20.2 Calculus of kidney with calculus of ureter; N39.0 Urinary tract infection, site not specified; T45.1X5A Adverse effect of antineoplastic and immunosuppressive drugs, initial encounter; K59.00 Constipation, unspecified; Z82.49 Family history of ischemic heart disease and other diseases of the circulatory system; Z85.51 Personal history of malignant neoplasm of bladder; Z83.3 Family history of diabetes mellitus; Z90.49 Acquired absence of other specified parts of digestive tract; Z90.710 Acquired absence of both cervix and uterus; Y92.89 Other specified places as the place of occurrence of the external cause; Z79.899 Other long term (current) drug therapy; Z93.6 Other artificial openings of urinary tract status
CPT/HCPCS: 36415; 71010; 74176; 80048; 80053; 80202; 81001; 82150; 83605; 83690; 83735; 84484; 85007; 85025; 85027; 85610; 85730; 86850; 86900; 86901; 86920; 87040; 87086; 93005; 94761; 96365; 96367; 96372; 96375; C9113; J0696; J1442; J1956; J2405

== ENCOUNTER 2018-01-20 21:22 | Emergency (ER) | payer MEDICAID ==
[~2018-01-20] VITALS: Ht 172.7 cm; Wt 115.7 kg
[~2018-01-20 21:22] MED LIST changes: +BENA5TAB5 PO; +FERR-20 PO; +FURO40TA4 PO; +LEVO500T21 PO; -MET25T PO; +POTA10TA51 PO; +[UNRECOGNIZED DRUG - CODE] SUBCUT
[2018-01-20] MEDS ORDERED: ACETAMINOPHEN 325 MG TAB PO ONE ×2 (21:36→23:45)
[2018-01-20 22:56] LABS: Basophils # (auto) 0 uL; Basophils % (auto) 0.3 % (0.0-2.0); Eosinophils # (auto) 0 uL; Eosinophils % (auto) 0.2 % (0.0-7.0); Hematocrit 32.2 % (36.0-46.0); Lymphocytes # (auto) 0.6 uL; Lymphocytes % (auto) 5.9 % (10.0-50.0); Mean Corpuscular Hemoglobin 31.4 pg (28.0-32.0); Mean Corpuscular Hgb Conc. 34.1 g/dL (32.0-36.0); Mean Corpuscular Volume 92.1 fL (80.0-100.0); Monocytes # (auto) 0.5 uL; Monocytes % (auto) 5.6 % (0.0-12.0); Neutrophils # (auto) 8.2 uL; Platelet Count (auto) 155 10^3/uL (140-450); Red Blood Cells 3.49 10^6/uL (4.0-5.20); Red Cell Distribution Width 14.7 % (11.8-14.3); White Blood Cell 9.4 10^3/uL (4.4-10.8)
[2018-01-20 23:03] LABS: BUN/Creatinine Ratio 15.5; Calcium 8.9 mg/dL (8.5-10.1)
[2018-01-20 23:05] LABS: Bilirubin, Total 1.1 mg/dL (0.2-1.0); Total Protein 9.1 g/dL (6.4-8.2)
[2018-01-21] MEDS ORDERED: SODIUM CHLORIDE 0.9% 1,000 ML IV ONE (01:30)
[2018-01-21] MEDS ORDERED: cefTRIAXone 1GM/10ml IVPUSH 10 ML IV ONE (01:30)
[2018-01-21 05:22] VITALS: BP 100/53
[2018-01-21 06:17] LABS: Urine Bacteria MANY /hpf (None Seen); Urine Blood 1+ /uL (Negative); Urine Hyaline Cast FEW /lpf (0 - 2); Urine Mucus FEW (None Seen); Urine Specific Gravity 1.016 (1.001-1.035); Urine WBC 323 /hpf (0 - 5); Urine WBC Clumps PRESENT /hpf (None Seen)
== END 2018-01-21 06:33 | disposition home or self-care (01) ==
LOC: ER 21:22 → EDBD 21:22 → ER 01-21 06:33
DX: E86.0 Dehydration (principal); E87.6 Hypokalemia; I11.0 Hypertensive heart disease with heart failure; I50.9 Heart failure, unspecified; N28.9 Disorder of kidney and ureter, unspecified; Z90.49 Acquired absence of other specified parts of digestive tract; Z90.710 Acquired absence of both cervix and uterus
CPT/HCPCS: 36415; 71045; 74176; 80053; 81001; 83605; 83880; 84702; 85025; 87040; 87077; 87186; 96361; 96374

== ENCOUNTER 2018-02-19 21:15 | Emergency (ER) | payer MEDICAID ==
[~2018-02-19] VITALS: Ht 172.7 cm; Wt 117.9 kg
[2018-02-19 22:12] LABS: Basophils # (auto) 0 uL; Basophils % (auto) 0.3 % (0.0-2.0); Eosinophils # (auto) 0.2 uL; Eosinophils % (auto) 1.6 % (0.0-7.0); Hemoglobin 10.9 g/dL (12.2-16.2); Lymphocytes # (auto) 1.4 uL; Lymphocytes % (auto) 13.2 % (10.0-50.0); Mean Corpuscular Hemoglobin 30.9 pg (28.0-32.0); Mean Corpuscular Hgb Conc. 34.1 g/dL (32.0-36.0); Mean Corpuscular Volume 90.8 fL (80.0-100.0); Monocytes # (auto) 0.6 uL; Monocytes % (auto) 6.2 % (0.0-12.0); Neutrophils # (auto) 8.2 uL; Neutrophils % (auto) 78.7 % (37.0-80.0); Platelet Count (auto) 184 10^3/uL (140-450); Red Blood Cells 3.53 10^6/uL (4.0-5.20); Red Cell Distribution Width 17.5 % (11.8-14.3); White Blood Cell 10.4 10^3/uL (4.4-10.8)
[2018-02-19 22:16] LABS: Albumin 3.2 g/dL (3.4-5.0); BUN/Creatinine Ratio 15.4; Calcium 8.8 mg/dL (8.5-10.1); Magnesium 1.5 mg/dL (1.6-2.6)
[2018-02-19 22:19] LABS: Bilirubin, Total 0.6 mg/dL (0.2-1.0); Total Protein 8.3 g/dL (6.4-8.2)
[2018-02-19] MEDS ORDERED: ONDANSETRON HCL 4 MG/2 ML VIAL IV ONE (22:45)
[2018-02-19] MEDS ORDERED: SODIUM CHLORIDE 0.9% 1,000 ML IV ONE (22:45)
[2018-02-19] MEDS ORDERED: MORPHINE SULFATE 8mg/ml INJ SDV IV ONE (22:45)
[2018-02-19] MEDS ORDERED: MORPHINE SULF INJ 2 MG/ML SYRINGE 1ML ONE (22:52)
[2018-02-19 22:56] LABS: Prothrombin Time 10.7 sec (9.27-12.13)
[2018-02-20 00:09] LABS: Urine Bacteria MOD /hpf (None Seen); Urine Blood 2+ /uL (Negative); Urine Specific Gravity 1.012 (1.001-1.035); Urine WBC 246 /hpf (0 - 5)
[2018-02-20 01:30] VITALS: BP 103/74
== END 2018-02-20 01:50 | disposition home or self-care (01) ==
LOC: EDBD 21:15 → ER 21:15
DX: N39.0 Urinary tract infection, site not specified (principal); C79.11 Secondary malignant neoplasm of bladder
CPT/HCPCS: 36415; 74176; 80053; 81001; 81025; 82150; 83690; 83735; 83880; 85025; 85610; 85730; 86850; 86900; 86901; 96374; 96375; 99285; J2270; J2405; J7030

== ENCOUNTER 2018-09-10 20:01 | Emergency (ER) | payer MEDICARE, MEDICAID ==
[~2018-09-10] VITALS: Ht 172.7 cm; Wt 114.3 kg
[~2018-09-10 20:01] MED LIST changes: -BENA5TAB5 PO; +ONDA-143 PO; -ONDA8TAB6 PO; +SENN-58 PO
[2018-09-10 20:57] VITALS: BP 98/56
== END 2018-09-10 20:54 | disposition left against medical advice (07) ==
LOC: EDBD 20:01 → ER 20:10
DX: F41.9 Anxiety disorder, unspecified (principal); Z53.21 Procedure and treatment not carried out due to patient leaving prior to being seen by health care provider

== ENCOUNTER 2018-11-28 10:33 | Inpatient (IN) | payer MEDICARE, MEDICAID ==
[~2018-11-28] VITALS: Ht 172.7 cm; Wt 112.2 kg
[2018-11-28] MEDS ORDERED: ACETAMINOPHEN 325 MG TAB PO ONE ×2 (10:45)
[2018-11-28 11:23] LABS: Basophils % (auto) 0.4 % (0.0-2.0); Eosinophils # (auto) 0 uL; Hemoglobin 7.3 g/dL (12.2-16.2); Lymphocytes # (auto) 0.1 uL; Monocytes # (auto) 0.3 uL
[2018-11-28 11:26] LABS: BUN/Creatinine Ratio 19.9; Basophils # (auto) 0 uL; Calcium 7.9 mg/dL (8.5-10.1); Eosinophils % (auto) 0.3 % (0.0-7.0); Hematocrit 22.7 % (36.0-46.0); Lymphocytes % (auto) 0.8 % (10.0-50.0); Mean Corpuscular Hemoglobin 25.8 pg (28.0-32.0); Mean Corpuscular Volume 80.6 fL (80.0-100.0); Neutrophils # (auto) 11.1 uL; Neutrophils % (auto) 95.5 % (37.0-80.0); Platelet Count (auto) 102 10^3/uL (140-450); Potassium 3.3 mmol/L (3.5-5.1); Red Blood Cells 2.82 10^6/uL (4.0-5.20); White Blood Cell 11.6 10^3/uL (4.4-10.8)
[2018-11-28 11:30] LABS: Red Cell Distribution Width 20.9 % (11.8-14.3)
[2018-11-28 11:31] LABS: Bilirubin, Total 1.3 mg/dL (0.2-1.0); Total Protein 7.4 g/dL (6.4-8.2)
[2018-11-28] MEDS ORDERED: ASPirin 81 mg TAB PO ONE (11:45)
[2018-11-28] MEDS ORDERED: ENOXAPARIN SOD 100 MG/1 ML SYRINGE SC ONE (13:00)
[2018-11-28] MEDS ORDERED: PIPERACILLIN-TAZOB 3.375GM 100 ML IV ONE (13:00)
[2018-11-28] MEDS ORDERED: VENL75CA78 (14:44)
[2018-11-28] MEDS ORDERED: MORP100T22 (14:44)
[2018-11-28] MEDS ORDERED: POTA1CAP (14:44)
[2018-11-28] MEDS ORDERED: LACT10SO43 (14:44)
[2018-11-28] MEDS ORDERED: MORP15TA (14:44)
[2018-11-28] MEDS ORDERED: SENN-51 (14:44)
[2018-11-28] MEDS ORDERED: [UNRECOGNIZED DRUG - CODE] (14:44)
[2018-11-28] MEDS ORDERED: SODIUM CHLORIDE 0.9% 1,000 ML IV ONE ×2 (16:00)
[2018-11-28] MEDS ORDERED: MORPHINE SULFATE 4 MG/ML SYR/VIAL IV ONE (16:00)
[2018-11-28] MEDS ORDERED: ONDANSETRON HCL 4 MG/2 ML VIAL IV ONE (16:00)
[2018-11-28] MEDS ORDERED: HYDROcodone-ACET 5/325MG TAB PO PRN (17:15)
[2018-11-28] MEDS ORDERED: ACETAMINOPHEN 500 MG TAB PO PRN (17:15)
[2018-11-28] MEDS ORDERED: VANCOMYCIN PER PHARMACY 0 MG IV SCH (17:15)
[2018-11-28] MEDS ORDERED: NITROGLYCERIN 0.4 MG SL TAB SL PRN (17:15)
[2018-11-28] MEDS ORDERED: MORPHINE SULF INJ 2 MG/ML SYRINGE 1ML IV PRN ×2 (17:15)
[2018-11-28] MEDS ORDERED: POTASSIUM CHL 20MEQ/100ML 100 ML IV ONE (17:15)
[2018-11-28] MEDS: SODIUM CHLORIDE 0.9% 1,000 ML IV SCH (17:56)
[2018-11-28] MEDS: NYSTATIN (MOUTH-THROAT) 500,000 UNITS/5 ML SUSP MT SCH ×2 (18:05→22:25)
[2018-11-28] MEDS ORDERED: HYDROmorphone HCL 2 MG/ML VL IV PRN (18:15)
[2018-11-28] MEDS: VANCOMYCIN 1,500 MG in D5W 5% 250 ML IV SCH (18:24)
[2018-11-28] MEDS ORDERED: SODIUM CHLORIDE 0.9% 500 ML IV ONE (18:45)
[2018-11-28] MEDS: IPRATROPIUM BROM 0.5 MG/2.5ML INH SOL NEB SCH (18:47)
[2018-11-28] MEDS: ALBUTEROL SULF 2.5 MG/0.5ML(0.5%) NEB SOLN NEB SCH (18:47)
--- NOTE | 2018-11-28 18:47 | NUR ---
Respiratory note: AT BEDSIDE FOR MED NEB TX. PT IN ER BED 14 AT THIS TIME. FAMILY AT BEDSIDE. PT TOLERATING TX WELL VIA MASK. PT ON RA PRE TX POX 95% HR 67, RR20. PT AWARE OF SCHEDULED ORDERS. PT STATES SHE FEELS NO DIFFERENCE WITH TX. PT DOES NOT WANT TO BE WOKEN UP FOR MED NEB TXS.
[2018-11-28 19:03] LABS: Urine Bacteria FEW /hpf (None Seen); Urine Blood 1+ /uL (Negative); Urine Specific Gravity 1.016 (1.001-1.035); Urine WBC 181 /hpf (0 - 5); Urine WBC Clumps PRESENT /hpf (None Seen)
[2018-11-28] MEDS: NOREPINEPHRINE 8 MG/250ML KIT 250 ML IV SCH (20:29)
[2018-11-28] MEDS: PIPERACILLIN-TAZOB 2.25GM 50 ML IV SCH (21:29)
[2018-11-28] MEDS ORDERED: ALBUMIN 5% 250 ML IV ONE (22:45)
[2018-11-29] VITALS (12 sets, daily range): BP systolic 82–119; BP diastolic 39–67
[2018-11-29] MEDS: MORPHINE SULF 30 mg ER tab PO SCH ×3 (00:06→21:31)
[2018-11-29] MEDS: PIPERACILLIN-TAZOB 2.25GM 50 ML IV SCH ×4 (03:30→21:31)
[2018-11-29] MEDS: SODIUM CHLORIDE 0.9% 1,000 ML IV SCH ×2 (03:38→13:43)
[2018-11-29] MEDS: NYSTATIN (MOUTH-THROAT) 500,000 UNITS/5 ML SUSP MT SCH ×4 (05:49→21:31)
[2018-11-29] MEDS: IPRATROPIUM BROM 0.5 MG/2.5ML INH SOL NEB SCH ×2 (06:12→11:32)
[2018-11-29] MEDS: ALBUTEROL SULF 2.5 MG/0.5ML(0.5%) NEB SOLN NEB SCH ×2 (06:12→11:32)
[2018-11-29 06:24] LABS: Basophils # (auto) 0 uL; Basophils % (auto) 0.4 % (0.0-2.0); Eosinophils # (auto) 0 uL; Lymphocytes # (auto) 0.2 uL; Lymphocytes % (auto) 2.1 % (10.0-50.0); Monocytes # (auto) 0.6 uL; Red Blood Cells 2.25 10^6/uL (4.0-5.20); White Blood Cell 9.8 10^3/uL (4.4-10.8)
[2018-11-29 06:28] LABS: Eosinophils % (auto) 0.3 % (0.0-7.0); Hematocrit 18.2 % (36.0-46.0); Mean Corpuscular Hemoglobin 26.2 pg (28.0-32.0); Mean Corpuscular Hgb Conc. 32.3 g/dL (32.0-36.0); Monocytes % (auto) 6.3 % (0.0-12.0); Neutrophils % (auto) 90.9 % (37.0-80.0); Nucleated Red Blood Cells % 0.1 %; Platelet Count (auto) 84 10^3/uL (140-450)
[2018-11-29 06:36] LABS: Red Cell Distribution Width 20.8 % (11.8-14.3)
[2018-11-29 06:37] LABS: Hemoglobin 5.9 g/dL (12.2-16.2)
[2018-11-29 06:52] LABS: Calcium 7.6 mg/dL (8.5-10.1); Potassium 3.3 mmol/L (3.5-5.1)
[2018-11-29 06:53] LABS: BUN/Creatinine Ratio 21.2
[2018-11-29 08:18] LABS: Hematocrit 17.2 % (36.0-46.0)
[2018-11-29 08:24] LABS: Hemoglobin 5.6 g/dL (12.2-16.2)
[2018-11-29] MEDS: PANTOPRAZOLE 40 MG/10 ML VIAL IV SCH (09:54)
[2018-11-29 12:03] LABS: INR 1.13 (0.9-1.15)
[2018-11-29] MEDS ORDERED: IPRATROPIUM BROM 0.5 MG/2.5ML INH SOL NEB PRN (15:30)
[2018-11-29] MEDS ORDERED: ALBUTEROL SULF 2.5 MG/0.5ML(0.5%) NEB SOLN NEB PRN (15:30)
[2018-11-29] MEDS: ONDANSETRON HCL 4 MG/2 ML VIAL IV PRN (16:07)
[2018-11-29] MEDS ORDERED: HYDROmorphone HCL 2 MG/ML VL IV ONE (17:30)
[2018-11-29] MEDS: NOREPINEPHRINE 8 MG/250ML KIT 250 ML IV SCH (17:52)
[2018-11-29] MEDS: VANCOMYCIN 1,500 MG in D5W 5% 250 ML IV SCH (18:38)
--- NOTE | 2018-11-29 19:27 | NUR ---
Telemetry admit from ER MAIKAMILCAR Ford admitted to Telemetry unit after SBAR received. AAOX4, breathing even nonlabored, S1, S2, lungs clear bilateral auscultation. Stevie midline intact/patent, Port-a-cath to right upper chest. Stevie nephrostomy bags. Patient oriented to Blair Bell RN primary RN, unit, room, bed, and unit policies regarding patient care and visiting hours. Patient now on continuous telemetry monitoring, tele box # 20 and telemetry reading on arrival to unit is SINUS RHYTHM 69. Patient placed on bedside oxygen, weighed by bedscale and encouraged to call if they need something. All questions and concerns addressed, patient verbalized understanding. Bed locked in the lowest position, call light within easy reach, will continue to monitor.
--- NOTE | 2018-11-29 19:33 | NUR ---
CARE ENDORSED TO TITO HINOJOSA.
[2018-11-29] MEDS: HYDROmorphone HCL 2 MG/ML VL IV PRN (20:14)
--- NOTE | 2018-11-29 21:18 | NUR ---
Respiratory note: WENT TO ASSESS PT FOR PRN MED NEB TX, PT NOT IN THE ROOM. WILL FOLLOW UP WITH RN.
[2018-11-29 23:08] LABS: Hematocrit 22.3 % (36.0-46.0); Hemoglobin 7.1 g/dL (12.2-16.2)
[2018-11-30] MEDS: SODIUM CHLORIDE 0.9% 1,000 ML IV SCH ×3 (01:23→23:25)
[2018-11-30] MEDS: HYDROmorphone HCL 2 MG/ML VL IV PRN ×5 (01:24→20:35)
[2018-11-30] MEDS: PIPERACILLIN-TAZOB 2.25GM 50 ML IV SCH ×4 (03:34→23:12)
[2018-11-30 05:51] VITALS: BP 111/57
[2018-11-30] MEDS: NYSTATIN (MOUTH-THROAT) 500,000 UNITS/5 ML SUSP MT SCH ×4 (06:05→23:18)
[2018-11-30 06:32] LABS: Hemoglobin 7.3 g/dL (12.2-16.2)
[2018-11-30 06:33] LABS: Hematocrit 22.8 % (36.0-46.0)
[2018-11-30 07:20] LABS: BUN/Creatinine Ratio 15.1; Calcium 7.6 mg/dL (8.5-10.1); Potassium 3.2 mmol/L (3.5-5.1)
--- NOTE | 2018-11-30 08:00 | NUR ---
Opening Shift Note Assumed care of patient, awake, alert and oriented X4. No S/S of distress/SOB, complains of left calf pain, 03/12. Tele# 20, sinus rhythm @ 67 bpm. Right upper chest wall Tni Cath, accessed in the ER, infusing 0.9% NS @ 100 ml/hr. Right upper arm midline, occluded, unable to flush, will remove. Left upper arm midline, 18 gauge, patent and saline locked. Bilateral nephrostomy tubes draining clear, yellow urine to gravity. Instructed on POC and to call for assist PRN, verbalized understanding. Bed locked, in lowest position, call light within reach, will continue to monitor for changes Q1hr and PRN.
[2018-11-30 09:00] VITALS: BP 116/56
[2018-11-30] MEDS ORDERED: POTASSIUM CHL 20 Meq TABLET PO ONE (09:45)
[2018-11-30] MEDS: VANCOMYCIN 1GM/250ML 250 ML IV SCH ×2 (11:10→23:27)
[2018-11-30] MEDS: PANTOPRAZOLE 40 MG/10 ML VIAL IV SCH (11:10)
[2018-11-30] MEDS ORDERED: FLUCONAZOLE 100 MG TAB PO ONE (11:45)
--- NOTE | 2018-11-30 11:45 | NUR ---
ROUNDS Dr Lopez at bedside for rounds, new orders received and followed through. Patient and spouse at bedside, updated on plan of care, verbalized understanding, continue care.
[2018-11-30 13:00] VITALS: BP 103/53
[2018-11-30] MEDS: MORPHINE SULF 30 mg ER tab PO SCH ×2 (13:10→23:18)
[2018-11-30] MEDS: ONDANSETRON HCL 4 MG/2 ML VIAL IV PRN ×2 (15:25→20:35)
--- NOTE | 2018-11-30 16:43 | NUR ---
Respiratory note: PATIENT HAS NO S/S OF RESP DISTRESS OR SOB AT THIS TIME. NO INDICATION OF MED NEB TX. WILL CONTINUE TO MONITOR PATIENT, SEE VITAL CHARTING FOR MORE DETAILS.
[2018-11-30 16:50] VITALS: BP 148/69
--- NOTE | 2018-11-30 19:06 | NUR ---
Care endorsed to MICAELA Mcnally, night nurse.
--- NOTE | 2018-11-30 20:10 | NUR ---
RECEIVED REPORT FROM DAY RN POC REVIEWED
--- NOTE | 2018-11-30 20:20 | NUR ---
PT ASSESSED FOR PRN MEDNEB TX. NO TX INDICATED AT THIS TIME. SPO2 97% ON RA HR 66 RR 20 B/S DIMINISHED. PT AWARE TO CALL RN AND HAVE RT PAGED IF THEY BECOME SOB.
[2018-11-30 22:00] VITALS: BP 133/71
--- NOTE | 2018-12-01 00:52 | NUR ---
pain med given pt resting comfortable, pts at bedside assisting with pts care, call light within reach, nephrostomy tubes intact, to drain,
[2018-12-01] MEDS: HYDROmorphone HCL 2 MG/ML VL IV PRN ×5 (03:40→21:12)
--- NOTE | 2018-12-01 03:59 | NUR ---
AWOKE MEDICATED FOR C/O PAIN 04/12 REPOSITIONED FOR COMFORT
[2018-12-01] MEDS: PIPERACILLIN-TAZOB 2.25GM 50 ML IV SCH ×4 (04:41→21:12)
[2018-12-01] MEDS: NYSTATIN (MOUTH-THROAT) 500,000 UNITS/5 ML SUSP MT SCH ×4 (05:02→22:00)
[2018-12-01] MEDS: SODIUM CHLORIDE 0.9% 1,000 ML IV SCH ×2 (05:30→14:32)
[2018-12-01 05:54] VITALS: BP 132/69
--- NOTE | 2018-12-01 07:40 | NUR ---
OPENING NOTE ASSUMED CARE OF PT. PT IS LAYING ON BED, HOB LOW-FOWLERS. A&O X4. ON ROOM AIR, O2 SATURATION 97%. NO SIGNS OF SOB/DISTRESS. TELE #20, SR @ 75 BPM. RIGHT CHEST PEGGY CATH INFUSING NS @ 100 ML/HR. LEFT UPPER ARM MIDLINE PATENT AND SALINE LOCKED, DRESSING CLEAN, DRY AND INTACT. BILATERAL NEPHROSTOMY TUBE PATENT AND DRAINING CLEAR YELLOW URINE TO GRAVITY. SAFETY PRECAUTIONS IN PLACE INCLUDING BED SET TO LOWEST POSITION/LOCKED, BESIDE RAILS UP X2, CALL LIGHT WITHIN REACH. INSTRUCTED PT TO CALL FOR ASSISTANCE. DISCUSSED POC WITH PT. PT VERBALIZED UNDERSTANDING. WILL CONTINUE TO MONITOR Q 1HR AND PRN.
--- NOTE | 2018-12-01 07:53 | NUR ---
report given to am nurse poc reviewed
--- NOTE | 2018-12-01 08:29 | NUR ---
right arm midline removed clotted off, cannula intact, coban and sterile gauze applied, educated pt to notify nurse if any bleeding
[2018-12-01 09:21] VITALS: BP 129/71
[2018-12-01] MEDS: PANTOPRAZOLE 40 MG/10 ML VIAL IV SCH (09:22)
[2018-12-01] MEDS: FLUCONAZOLE 100 MG TAB PO SCH (09:23)
[2018-12-01] MEDS: MORPHINE SULF 30 mg ER tab PO SCH ×2 (09:23→22:36)
[2018-12-01 09:40] LABS: BUN/Creatinine Ratio 10.7; Calcium 7.5 mg/dL (8.5-10.1); Potassium 3.5 mmol/L (3.5-5.1)
[2018-12-01 09:42] LABS: Hematocrit 23.8 % (36.0-46.0); Hemoglobin 7.3 g/dL (12.2-16.2); Mean Corpuscular Hgb Conc. 30.7 g/dL (32.0-36.0); White Blood Cell 14.3 10^3/uL (4.4-10.8)
[2018-12-01 09:43] LABS: Mean Corpuscular Hemoglobin 24.6 pg (28.0-32.0); Mean Corpuscular Volume 80.3 fL (80.0-100.0); Platelet Count (auto) 110 10^3/uL (140-450); Red Blood Cells 2.97 10^6/uL (4.0-5.20)
[2018-12-01 09:55] LABS: Red Cell Distribution Width 23.3 % (11.8-14.3)
[2018-12-01 09:56] LABS: Basophils % (manual) 0 (0.0-2.0); Blast Cells 0; Eosinophils % (manual) 0 (0-7); Metamyelocytes % 0; Myelocytes % 0; Promyelocytes % 0; Reactive Lymphocytes 0
[2018-12-01] MEDS: VANCOMYCIN 1GM/250ML 250 ML IV SCH ×3 (11:28→22:54)
[2018-12-01 13:00] VITALS: BP 126/72
[2018-12-01 13:34] LABS: Band Neutrophils % (manual) 3; Lymphocytes % (manual) 4 (10.0-50.0); Monocytes % (manual) 4 (0-12)
--- NOTE | 2018-12-01 15:53 | NUR ---
EMPTIED 250 ML OF CLEAR YELLOW URINE FROM LEFT NEPHROSTOMY BAG.
[2018-12-01 17:21] VITALS: BP 118/69
--- NOTE | 2018-12-01 19:17 | NUR ---
ENDORSED CARE TO MICAELA FRAZIER.
--- NOTE | 2018-12-01 19:20 | NUR ---
Opening Shift Note Assumed care of patient, awake and alert. at bedside No S/S of distress/SOB or pain. Instructed on POC and to call for assist PRN, will continue to monitor for changes Q1hr and PRN. Bed locked and in lowest position, call light within reach.
--- NOTE | 2018-12-01 19:45 | NUR ---
U/S TECH AT BEDSIDE
--- NOTE | 2018-12-01 19:50 | NUR ---
NEPHROSTOMY TUBE DRAINAGES Left Nephrostomy 250 ml dark yellow drainage noted Right Nephrostomy 150 ml dark yellow drainage noted
--- NOTE | 2018-12-01 19:55 | NUR ---
NEW DRESSINGS APPLIED TO Nephrostomy incisions pt tolerated procedure well. wanted to give pt a bed bath without Primary RN assistance, informed pt and pt's to please let me know if need assistance. will continue to monitor pt.
[2018-12-01 22:00] VITALS: BP 124/69
--- NOTE | 2018-12-01 22:53 | NUR ---
VANCOMYCIN HELD DUE TO TROUGH LEVEL 28.1
--- NOTE | 2018-12-01 23:16 | NUR ---
NEPHROSTOMY TUBE DRAINAGES Left Nephrostomy 200 ml dark yellow drainage noted Right Nephrostomy 50 ml dark yellow drainage noted
[2018-12-02] MEDS: HYDROmorphone HCL 2 MG/ML VL IV PRN ×7 (00:13→20:12)
[2018-12-02] MEDS: SODIUM CHLORIDE 0.9% 1,000 ML IV SCH ×2 (01:30→11:30)
[2018-12-02] MEDS: PIPERACILLIN-TAZOB 2.25GM 50 ML IV SCH ×2 (03:12→09:14)
--- NOTE | 2018-12-02 03:13 | NUR ---
NEPHROSTOMY TUBE DRAINAGES Left Nephrostomy 250 ml dark yellow drainage noted Right Nephrostomy 100 ml dark yellow drainage noted
[2018-12-02 05:00] VITALS: BP 106/56
[2018-12-02] MEDS: NYSTATIN (MOUTH-THROAT) 500,000 UNITS/5 ML SUSP MT SCH ×4 (06:00→21:23)
--- NOTE | 2018-12-02 06:20 | NUR ---
NEPHROSTOMY TUBE DRAINAGES Left Nephrostomy 250 ml dark yellow drainage noted Right Nephrostomy 25 ml dark yellow drainage noted
[2018-12-02 06:46] LABS: Basophils # (auto) 0.1 uL; Eosinophils # (auto) 0.2 uL; Monocytes # (auto) 0.5 uL; Neutrophils # (auto) 10.8 uL
[2018-12-02 06:50] LABS: Basophils % (auto) 0.5 % (0.0-2.0); Eosinophils % (auto) 1.6 % (0.0-7.0); Lymphocytes # (auto) 0.6 uL; Lymphocytes % (auto) 4.7 % (10.0-50.0); Mean Corpuscular Hemoglobin 25.4 pg (28.0-32.0); Mean Corpuscular Hgb Conc. 31.9 g/dL (32.0-36.0); Mean Corpuscular Volume 79.4 fL (80.0-100.0); Monocytes % (auto) 4.3 % (0.0-12.0); Neutrophils % (auto) 88.9 % (37.0-80.0); Platelet Count (auto) 88 10^3/uL (140-450); Red Blood Cells 2.77 10^6/uL (4.0-5.20); White Blood Cell 12.2 10^3/uL (4.4-10.8)
--- NOTE | 2018-12-02 06:53 | NUR ---
CLOSING NOTE Patient resting, at bedside, no s/sx's of distress noted
[2018-12-02 07:05] LABS: BUN/Creatinine Ratio 9.8; Calcium 7.6 mg/dL (8.5-10.1); Potassium 3.7 mmol/L (3.5-5.1)
[2018-12-02 07:10] LABS: Red Cell Distribution Width 23.6 % (11.8-14.3)
--- NOTE | 2018-12-02 07:20 | NUR ---
RECEIVED CRITICAL LAB VALUE HBG 7.0 FROM KALIE FROM LABORATORY. WILL INFORM
--- NOTE | 2018-12-02 07:40 | NUR ---
OPENING NOTE ASSUMED CARE OF PT. PT IS LAYING ON BED, HOB LOW-FOWLERS. A&O X4. ON ROOM AIR, O2 SATURATION 98%. NO SIGNS OF SOB/DISTRESS. TELE #20, SR @ 70 BPM. RIGHT CHEST PEGGY CATH INFUSING NS @ 100 ML/HR. LEFT UPPER ARM MIDLINE PATENT AND SALINE LOCKED, DRESSING CLEAN, DRY AND INTACT. BILATERAL NEPHROSTOMY TUBE PATENT AND DRAINING CLEAR YELLOW URINE TO GRAVITY. SAFETY PRECAUTIONS IN PLACE INCLUDING BED SET TO LOWEST POSITION/LOCKED, BESIDE RAILS UP X2, CALL LIGHT WITHIN REACH. INSTRUCTED PT TO CALL FOR ASSISTANCE. DISCUSSED POC WITH PT. PT VERBALIZED UNDERSTANDING. WILL CONTINUE TO MONITOR Q 1HR AND PRN.
--- NOTE | 2018-12-02 08:00 | NUR ---
PAGED DR. SINGH REGARDING CRITICAL LAB VALUE HBG 7.0, AWAITING CALL BACK.
[2018-12-02 08:38] VITALS: BP 117/63
--- NOTE | 2018-12-02 08:55 | NUR ---
PAGED DR. SINGH REGARDING CRITICAL LAB VALUE HBG 7.0, AWAITING CALL BACK.
--- NOTE | 2018-12-02 09:06 | NUR ---
SPOKE TO DR. SINGH VIA PHONE. WAS MADE AWARE OF CRITICAL LAB HBG 7.0, NO NEW ORDERS GIVEN WILL CONTINUE TO MONITOR.
[2018-12-02] MEDS: FLUCONAZOLE 100 MG TAB PO SCH (09:15)
[2018-12-02] MEDS: PANTOPRAZOLE 40 MG/10 ML VIAL IV SCH (09:15)
[2018-12-02] MEDS: MORPHINE SULF 30 mg ER tab PO SCH ×2 (09:16→21:23)
--- NOTE | 2018-12-02 10:45 | NUR ---
NEPHROSTOMY TUBE EMPTIED 300 ML CLEAR STRAW YELLOW URINE FROM LEFT NEPHROSTOMY TUBE EMPTIED 150 ML CLEAR STRAW YELLOW URINE FROM RIGHT NEPHROSTOMY TUBE
[2018-12-02] MEDS ORDERED: SODIUM CHLORIDE 0.9% 1,000 ML IV ONE (11:45)
[2018-12-02] MEDS: AMPICILLIN INJ 1 GM in SODIUM CHL 0.9% 50 ML IV SCH ×2 (12:30→17:30)
[2018-12-02] MEDS: SODIUM FERR GLUC 62.5MG/5ML 125 MG in SODIUM CHL 0.9% 100 ML IV SCH (12:30)
[2018-12-02 13:00] VITALS: BP 119/58
[2018-12-02] MEDS ORDERED: IOHEXOL 350 MG/ML 100ML IJ ONE (13:54)
--- NOTE | 2018-12-02 15:03 | NUR ---
Nutrition Assessment Notes please see attached link for complete assessment Est. Needs ABW [id number] kcal (20-23 kcal/kgBW), 69-87 gms pro (0.8-1.0 gms/kgBW r/t elev RFT severe hypoalb). Will continue to monitor pertinent labs and reassess nutrient need prn Addendum: 12/02/18 at [address] Amended: Links added.
--- NOTE | 2018-12-02 16:16 | NUR ---
FAXED CHART TO [facility] FOR CM LOWELL Aparicio
[2018-12-02 17:00] VITALS: BP 132/71
[2018-12-02] MEDS ORDERED: HEPARIN SODIUM (PORCINE) 5000 UNITS/ML 1ML VIAL IV ONE (17:00)
--- NOTE | 2018-12-02 19:23 | NUR ---
SPOKE TO PHARMACIST [facility] VIA PHONE TO CLARIFY HEPARIN DRIP. PER NGHIEM NO BOLUS NEED, PER DR. SINGH.
[2018-12-02 19:29] LABS: Hemoglobin 7.6 g/dL (12.2-16.2)
[2018-12-02 19:30] LABS: Hematocrit 24.4 % (36.0-46.0)
--- NOTE | 2018-12-02 19:30 | NUR ---
Opening Shift Note Assumed care of patient, awake and alert. at bedside. No S/S of distress/SOB or pain. Patient on heparin drip started at 1900 running at 20ml/hr. Left and right nephrostomy intact and patent. Bed locked in lowest position, side rails upx2, call light within reach. Instructed on POC and to call for assist PRN, will continue to monitor for changes Q1hr and PRN.
[2018-12-02 19:34] LABS: INR 1.13 (0.9-1.15); Partial Thromboplastin Time 30.7 sec (23.78-33.04)
[2018-12-02] MEDS: HEPARIN DRIP/D5W 100UNITS/ML 250 ML IV SCH (19:39)
--- NOTE | 2018-12-02 19:41 | NUR ---
ENDORSED CARE TO MICAELA CHAMORRO. NURSE IS AWARE OF HEPARIN DRIP INFUSING @ 20 ML/HR TO RIGHT UPPER CHEST PEGGY CATH.
[2018-12-02] MEDS: cefTAZidime 1 GM in SODIUM CHL 0.9% 50 ML IV SCH (21:22)
[2018-12-02 22:00] VITALS: BP 119/60
[2018-12-03] MEDS: AMPICILLIN INJ 1 GM in SODIUM CHL 0.9% 50 ML IV SCH ×5 (00:06→23:42)
[2018-12-03 00:36] LABS: Hemoglobin 7.4 g/dL (12.2-16.2)
[2018-12-03 00:38] LABS: Hematocrit 23.2 % (36.0-46.0)
[2018-12-03 00:50] LABS: INR 1.13 (0.9-1.15); Partial Thromboplastin Time 53.4 sec (23.78-33.04)
--- NOTE | 2018-12-03 01:09 | NUR ---
Patient aPTT after 6 hours is 53.40. No bolus and no change on heparin drip protocol. Will continue to monitor.
--- NOTE | 2018-12-03 01:25 | NUR ---
NEPHROSTOMY TUBE REMOVED 450ML OF YELLOW URINE FROM LEFT NEPHROSTOMY TUBE REMOVED 200ML OF YELLOW URINE FROM RIGHT NEPHROSTOMY TUBE
[2018-12-03 05:00] VITALS: BP 144/65
--- NOTE | 2018-12-03 05:00 | NUR ---
NEPHROSTOMY TUBE REMOVED 200ML OF YELLOW URINE FROM LEFT NEPHROSTOMY TUBE REMOVED 200ML OF YELLOW URINE FROM RIGHT NEPHROSTOMY TUBE
[2018-12-03] MEDS: HYDROmorphone HCL 2 MG/ML VL IV PRN ×5 (05:13→22:26)
[2018-12-03] MEDS: NYSTATIN (MOUTH-THROAT) 500,000 UNITS/5 ML SUSP MT SCH ×4 (06:00→21:26)
[2018-12-03] MEDS: cefTAZidime 1 GM in SODIUM CHL 0.9% 50 ML IV SCH ×3 (06:04→21:26)
[2018-12-03] MEDS: HEPARIN DRIP/D5W 100UNITS/ML 250 ML IV SCH ×2 (06:40→18:45)
--- NOTE | 2018-12-03 06:43 | NUR ---
SECOND BAG OF HEPARIN DRIP HUNG AT 20ML/HR. AWAITING APTT RESULTS FROM LAB.
[2018-12-03 06:56] LABS: Basophils # (auto) 0.1 uL; Eosinophils # (auto) 0.2 uL; Hemoglobin 8.3 g/dL (12.2-16.2); Monocytes # (auto) 0.6 uL; Platelet Count (auto) 104 10^3/uL (140-450)
[2018-12-03 06:58] LABS: Basophils % (auto) 0.5 % (0.0-2.0); Eosinophils % (auto) 1.7 % (0.0-7.0); Hematocrit 26.7 % (36.0-46.0); Lymphocytes # (auto) 0.6 uL; Lymphocytes % (auto) 4.3 % (10.0-50.0); Mean Corpuscular Hgb Conc. 30.9 g/dL (32.0-36.0); Monocytes % (auto) 4.4 % (0.0-12.0); Neutrophils # (auto) 12.6 uL; Neutrophils % (auto) 89.1 % (37.0-80.0); White Blood Cell 14.1 10^3/uL (4.4-10.8)
[2018-12-03 07:05] LABS: Red Cell Distribution Width 24.2 % (11.8-14.3)
[2018-12-03 07:10] LABS: BUN/Creatinine Ratio 9.6; Calcium 7.8 mg/dL (8.5-10.1); Potassium 3.7 mmol/L (3.5-5.1)
[2018-12-03 07:12] LABS: INR 1.11 (0.9-1.15); Partial Thromboplastin Time 64.1 sec (23.78-33.04); Prothrombin Time 11.8 sec (9.27-12.13)
--- NOTE | 2018-12-03 07:16 | NUR ---
PT APTT 64.1, NO CHANGE, NO BOLUS. HEPARIN RUNNING AT 20 MLS/HR.
--- NOTE | 2018-12-03 07:39 | NUR ---
[facility] CALLED, PT HEART RATE 38-39. RECEIVED IN REPORT PT RUNS SINUS LINCOLN 35-50, AND AWARE. DR. PEARSON ALREADY SAW PATIENT. Addendum: 12/03/18 at 0842 by MICHAEL TURCIOS RN WRONG PATIENT
--- NOTE | 2018-12-03 08:20 | NUR ---
PT RESTING IN BED AT BEDSIDE. PT REPORTS 8/10 PAIN IN BACK, WILL GIVE PRN PAIN MEDICATION. WAITING ON BED FROM [facility] TO TRANSFER PT. PT AWARE. PT HAS BILATERAL NEPHROSTOMY TUBES. 150 MLS CLEAR YELLOW LIQUID DRAINED FROM LEFT AND 50 MLS CLEAR YELLOW LIQUID DRAINED FROM RIGHT. PT LEFT CALF RED YET COOL TO THE TOUCH AND TENDER ON PALPATION. HEPARIN RUNNING AT 20 MLS/HR, WILL CONTINUE TO MONITOR.
[2018-12-03 08:38] VITALS: BP 129/72
--- NOTE | 2018-12-03 08:38 | NUR ---
DR PEARSON CALLED, PT TO BE DISCHARGED TODAY. NOTIFIED PT HR 38-39. AWARE, NO NEW ORDERS. REQUESTS PT TAKE 81 MG ASPIRIN A DAY AND WALK PATIENT. PT IS ALSO TO BE DISCHARGED WITH PACEMAKER PAPERWORK. WILL CONTINUE TO MONITOR. Addendum: 12/03/18 at 0842 by MICHAEL TURCIOS RN WRONG PATIENT
[2018-12-03] MEDS ORDERED: HEPARIN SODIUM (PORCINE) 5000 UNITS/ML 1ML VIAL IV SCH (08:45)
[2018-12-03] MEDS: FLUCONAZOLE 100 MG TAB PO SCH (09:32)
[2018-12-03] MEDS: MORPHINE SULF 30 mg ER tab PO SCH ×2 (09:32→21:26)
[2018-12-03] MEDS: PANTOPRAZOLE 40 MG/10 ML VIAL IV SCH (09:33)
--- NOTE | 2018-12-03 09:41 | NUR ---
PT REPORTS ISABEL STACY WON'T TAKE HER. PT PROVIDED NUMBER AND INFORMATION FOR [facility] [place] WHERE ALL OF HER SPECIALISTS ARE, AND REQUESTED DR. SINGH CALL THE TRANSFER CENTER. DR SINGH NOTIFIED AND GIVEN CONTACT INFORMATION. DR SINGH REPORTS SHE WILL CALL.
--- NOTE | 2018-12-03 10:08 | NUR ---
ORDER AND CLINICALS FAXED TO [facility] [place]. TRANSFER BACK AGREEMENT ALSO COMPLETED AND FAXED TO [facility] [place].
--- NOTE | 2018-12-03 10:35 | NUR ---
JEWELRY DEPARTMENT SUPERVISOR CALLED AND PT SITTING IN CHAIR AND LEANING OVER, IV LEAKING ON FLOOR. HELPED JEWELRY DEPARTMENT SUPERVISOR ASSIST PATIENT BACK TO BED. IV DISCONTINUED, PRESSURE DRESSING APPLIED. ATTEMPTED NEW IV, IV START UNSUCCESSFUL. PT FLEXING ARMS AND UNABLE TO RELAX ARM. CALLED DR. LIRA, REPORTED TO MD CANNOT ATTAIN IV ACCESS AND PT WBC COUNT WENT UP FROM 12.5 TO 13.3. REPORTED PT NEEDS HER ZYVOX. ASKED MD TO CLARIFY ORDERS FOR HYDRALAZINE. MD REPORTS TO GET EITHER A MIDLINE OR PICC LINE. MD REPORTS HE WILL CLARIFY HYDRALAZINE ORDERS WHEN HE COMES IN. CALLED LAUREL AND REQUESTED LAUREL KAPOOR REPORTS TO HAVE ANOTHER NURSE TRY AND CALL HER BACK. Addendum: 12/03/18 at 1238 by MICHAEL TURCIOS RN WRONG PATIENT.
[2018-12-03 12:25] LABS: Hematocrit 24.9 % (36.0-46.0); Hemoglobin 7.8 g/dL (12.2-16.2)
[2018-12-03] MEDS: SODIUM FERR GLUC 62.5MG/5ML 125 MG in SODIUM CHL 0.9% 100 ML IV SCH (12:26)
[2018-12-03 12:35] VITALS: BP 144/81
[2018-12-03 12:47] LABS: INR 1.13 (0.9-1.15); Partial Thromboplastin Time 63.2 sec (23.78-33.04)
--- NOTE | 2018-12-03 12:47 | NUR ---
PUT IN ORDER FOR PT DISC PER MD ORDER AND PRINTED OUT TRANSFER SUMMARY AND PLACED IN PT PACKET.
--- NOTE | 2018-12-03 13:08 | NUR ---
PT APTT 63.2, NO BOLUS NO CHANGE. Addendum: 12/03/18 at 1309 by MICHAEL TURCIOS RN FOR HEPARIN Addendum: 12/03/18 at 1310 by MICHAEL TURCIOS RN NOT HEPARIN, WARFARIN
--- NOTE | 2018-12-03 13:55 | NUR ---
NO ETA YET ON TIME FOR DISCHARGE, CALLED LOWELL AND LEFT MESSAGE ASKING FOR ETA.
--- NOTE | 2018-12-03 15:10 | NUR ---
SPOKE WITH LOWELL FROM , LOWELL REPORTS PT HAS BEEN ACCEPTED AT [facility] [place] AND PT IS JUST WAITING FOR A BED TO BE AVAILABLE. INSTRUCTIONS TO CALL [facility] WHEN BED READY TO TRANSFER PATIENT, WILL CONTINUE TO MONITOR.
--- NOTE | 2018-12-03 15:44 | NUR ---
PATIENT HAS BEEN ACCEPTED AT [facility] [place] BY DR VANIA SOTO. WAITING ON A BED ASSIGNMENT AT THIS TIME. PATIENT HAS BEEN PUT ON WILL CALL WITH [facility] ...PLEASE CALL [phone] WHEN PATIENT IS READY TO TRANSFER.
[2018-12-03 16:05] VITALS: BP 144/81
[2018-12-03 17:00] VITALS: BP 143/72
--- NOTE | 2018-12-03 18:05 | NUR ---
150 MLS CLEAR YELLOW LIQUID TAKEN FROM NEPHROSTOMY BAGS, NOTIFIED PT WE ARE WAITING FOR HOSPITAL BED AT [facility], PT AWARE, WILL CONTINUE TO MONITOR.
[2018-12-03 18:34] LABS: Hemoglobin 7.6 g/dL (12.2-16.2)
--- NOTE | 2018-12-03 18:39 | NUR ---
CALLED PHARMACY TO SEE IF ANOTHER BLOOD DRAW DUE FOR APTT. PHARMACY REPORTS NEXT DRAW IS TOMORROW MORNING AND PT IS STABLE SO A BLOOD DRAW Q 6 ISN'T NECESSARY AT THIS POINT.
--- NOTE | 2018-12-03 19:30 | NUR ---
Opening Shift Note Assumed care of patient, awake and alert. at bedside. No S/S of distress/SOB or pain. Awaiting bed at [facility] [place] for transfer. Patient on heparin drip running at 20ml/hr. Left and right nephrostomy intact and patent. Bed locked in lowest position, side rails upx2, call light within reach. Instructed on POC and to call for assist PRN, will continue to monitor for changes Q1hr and PRN.
[2018-12-03 22:00] VITALS: BP 143/69
[2018-12-04 01:07] LABS: Hemoglobin 7.3 g/dL (12.2-16.2)
[2018-12-04 01:09] LABS: Hematocrit 22.6 % (36.0-46.0)
[2018-12-04] MEDS: HYDROmorphone HCL 2 MG/ML VL IV PRN (02:09)
[2018-12-04 02:37] VITALS: BP 130/67
[2018-12-04 03:05] VITALS: BP 130/67
--- NOTE | 2018-12-04 04:01 | NUR ---
PATIENT [place] [facility] [place] ROOM [id number] WITH MICAELA REID.
--- NOTE | 2018-12-04 04:01 | NUR ---
Discharge instructions given as ordered. All questions and concerns addressed. Patient verbalized understanding. Medication reconciliation form completed and copy given to patient. Telemetry unit returned to [facility]. Report given to FRANKLIN HINOJOSA at [facility] [place]. Patient transported by [facility] with all personal belongings. No distress noted at time of departure.
== END 2018-12-04 03:59 | disposition short-term general hospital (02) | DRG 871 ==
LOC: EDUNIT# 10:33 → EDBD 10:33 → ER 10:43 → TELE 17:12 → TELE-WESTW 11-29 18:45
PROVIDERS: ADMIT Nurse Practitioner Acute Care; ATTEND Internal Medicine
PROC: 30233N1 Transfusion of Nonautologous Red Blood Cells into Peripheral Vein, Percutaneous Approach (ICD-10-PCS; principal; 2018-11-29)
DX: A41.89 Other specified sepsis (principal); E43 Unspecified severe protein-calorie malnutrition; G93.41 Metabolic encephalopathy; R65.21 Severe sepsis with septic shock; N17.0 Acute kidney failure with tubular necrosis; N39.0 Urinary tract infection, site not specified; E87.1 Hypo-osmolality and hyponatremia; I50.22 Chronic systolic (congestive) heart failure; I24.9 Acute ischemic heart disease, unspecified; I13.0 Hypertensive heart and chronic kidney disease with heart failure and stage 1 through stage 4 chronic kidney disease, or unspecified chronic kidney disease; E87.6 Hypokalemia; B35.8 Other dermatophytoses; E66.9 Obesity, unspecified; D63.8 Anemia in other chronic diseases classified elsewhere; N93.9 Abnormal uterine and vaginal bleeding, unspecified; D69.6 Thrombocytopenia, unspecified; F17.200 Nicotine dependence, unspecified, uncomplicated; G89.29 Other chronic pain; N13.9 Obstructive and reflux uropathy, unspecified; Z82.49 Family history of ischemic heart disease and other diseases of the circulatory system; Z85.51 Personal history of malignant neoplasm of bladder; Z83.3 Family history of diabetes mellitus; Z85.42 Personal history of malignant neoplasm of other parts of uterus; Z93.6 Other artificial openings of urinary tract status; Z68.37 Body mass index [BMI] 37.0-37.9, adult; Z90.710 Acquired absence of both cervix and uterus; Z92.21 Personal history of antineoplastic chemotherapy; Z92.3 Personal history of irradiation
CPT/HCPCS: 36415; 71045; 75635; 80048; 80053; 80202; 81001; 83605; 83735; 84484; 85007; 85014; 85018; 85025; 85027; 85610; 85730; 86850; 86900; 86901; 86920; 87040; 87077; 87081; 87086; 87088; 87186; 87804; 93005; 93306; 93926; 93971; 94640; 96361; 96365; 96372; 96375; A6257; C9113; G0378; J2405; J2543; J3480; J7060